=== PATIENT | female | born 1995 | race Caucasian/White ===

== ENCOUNTER 2021-10-01 05:17 | Emergency (ER) | payer MEDICAID, SELFPAY ==
--- NOTE | ~2021-10-01 | XR_ITS ---
EXAMINATION: XR CHEST CLINICAL INFORMATION: Cough and congestion COMPARISON: June 03, 2019 TECHNIQUE: 2 views of the chest were obtained. FINDINGS: No significant abnormality is noted involving the heart, lungs, mediastinum, bony thorax or soft tissues. XR/XR chest 2V IMPRESSION: No acute disease.
[2021-10-01 05:30] VITALS: BP 109/80; PULSE 103; RESP 18; TEMP 36.9; O2SAT 98; BMI 27.1
[2021-10-01 06:03] LABS: Appearance Urine TURBID; Color Urine YELLOW; Glucose Urine UA NEG (NEG); Leukocyte Esterase Urine TRACE (NEG); Nitrite Urine POS (NEG); PH 6.5 (5.0-8.0); Specific Gravity - Urine 1.025 (1.005-1.025); UACC Culture Trigger YES; Urine Blood TRACE (NEG); Urine Ketones NEG (NEG); Urine Protein NEG (NEG-TRACE)
[2021-10-01 06:05] LABS: UPreg QC Valid YES; Urine Pregnancy NEGATIVE (NEGATIVE)
[2021-10-01 06:15] LABS: Amorphous Sediment Urine TRACE /LPF; Bacteria Urine 3+ /LPF; Mucus Urine 1+ /LPF; RBC Urine 0-2 /HPF (0); Squamous Epithelial Cell Urine 2+ /LPF
--- NOTE | 2021-10-01 06:49 | ED.GENADULT ---
HPI - General Adult General Chief complaint: General Medical Stated complaint: symptoms, coughing up blood Time Seen by Provider: 10/01/21 05:36 Source: patient Mode of arrival: ambulatory Limitations: no limitations History of Present Illness HPI narrative: 26 yo female presented c/o cough,congestion nausea,stated cougheg up blood Yesterday Onset (ago): day(s) (1) Radiation: non-radiation Severity: moderate Quality: aching Pain Consistency: intermittent Relieving factors: none Exacerbating factors: none Associated symptoms: denies other symptoms Related Data Previous Rx's Medication Instructions Recorded cephalexin 500 mg capsule 500 mg PO Q8H #21 cap 10/01/21 Allergies Allergy/AdvReac Type Severity Reaction Status Date / Time No Known Allergies Allergy Unverified 07/15/20 16:19 [No Known Allergies*] Review of Systems Constitutional: Constitutional: Reports no additional constitutional complaints Cardiovascular: Cardiovascular: Reports no additional cardiovascular complaints Respiratory: Respiratory: Reports cough Gastrointestinal: Gastrointestinal: Denies diarrhea, Reports nausea and Denies vomiting Musculoskeletal: Musculoskeletal: Reports no additional musculoskeletal complaints PMFSH Social History Social History Advance Directives: No Advance Directives Information Provided: Yes Physical Exam Vital Signs: Vital Signs: Last Vital Signs Temp 98.4 F 10/01/21 05:30 Pulse 103 H 10/01/21 05:30 Resp 18 10/01/21 05:30 BP 109/80 10/01/21 05:30 Pulse Ox 98 10/01/21 05:30 BMI result Body Mass Index 27.1 Const: General: cooperative, healthy appearing and comfortable Orientation/consciousness: oriented to person HENMT: Head: Yes normal to inspection Face and sinus: Yes normal facial exam Mouth: Normal oral and palatal mucosa present Neck: Neck: Yes normal visual inspection and Yes full ROM Chest: Chest palpation & inspection: normal inspection of the chest Resp: Effort & Inspection: normal respiratory effort Auscultation: clear to auscultation bilaterally Cardio: Jugular venous distension: no JVD Rate: regular rate GI: Inspection: Yes normal to inspection Skin: General skin exam: no rashes or lesions noted Lesions: no lesions Rashes: no rashes Neuro: General: oriented to person Medical Decision Making Lab Data Labs: Lab Results 10/01/21 10/01/21 10/01/21 Range/Units 05:58 05:58 06:37 Urine Color YELLOW Urine Appearance TURBID Urine pH 6.5 (5.0-8.0) Ur Specific [place] 1.025 (1.005-1.025) Urine Protein NEG (NEG-TRACE) MG/DL Urine Glucose (UA) NEG (NEG) MG/DL Urine Ketones NEG (NEG) MG/DL Urine Blood TRACE (NEG) Urine Nitrite POS H (NEG) Ur Leukocyte Esterase TRACE H (NEG) Urine RBC 0-2 (0) /HPF Urine WBC 5-9 H (0-4) /HPF Ur Squamous Epith Cells 2+ /LPF Amorphous Sediment TRACE /LPF Urine Bacteria 3+ /LPF Urine Mucus 1+ /LPF Urine Test NEGATIVE (NEGATIVE) COVID-19 (MANDI) Negative (Negative) COVID-19 Clin Com See Note Imaging Data Chest x-ray: My impression: to my review NAD Discharge Plan Discharge Clinical Impression: UTI (urinary tract infection), URI (upper respiratory infection) Patient Disposition: Home, Self-Care Instructions: Urinary Tract Infection in Women (ED), Upper Respiratory Infection (ED) Prescriptions: New cephalexin 500 mg capsule 500 mg PO Q8H Qty: 21 RF: 0 Interventions: ED Discharge Assessment Last Done: 10/01/21 07:25 Discharge Date/Time: 10/01/21 07:26
[2021-10-01 06:57] LABS: COVID-19 Test Negative (Negative)
== END 2021-10-01 07:26 | disposition home or self-care (01) ==
PROVIDERS: Emergency Medicine; Emergency Provider Emergency Medicine
DX: N39.0 Urinary tract infection, site not specified (principal); J06.9 Acute upper respiratory infection, unspecified; Z20.822 Contact with and (suspected) exposure to COVID-19
CPT/HCPCS: 36415; 71046; 81001; 81025; 87086; 87088; 87186; 87635; 99283

== ENCOUNTER 2021-11-21 16:05 | Emergency (ER) | payer MEDICAID, SELFPAY ==
[2021-11-21 16:14] VITALS: BP 108/73; PULSE 97; RESP 18; TEMP 37.2; O2SAT 99; BMI 29.4
[2021-11-21 16:38] LABS: MANUAL DIFF FLAG NO
[2021-11-21 16:43] LABS: Basophils Percent Auto 0.1 % (0-2); Eosinophils Absolute Auto 0.2 X10*3/uL (0.0-0.4); Hematocrit 41.6 % (37.0-47.0); Hemoglobin 13.4 g/dl (12.0-16.0); Imm Gran Abs Auto 0.02 X10*3/uL (0.00-0.03); Imm Gran Pct Auto 0.2 % (0.0-0.4); Lymphocytes Absolute Auto 2.1 X10*3/uL (1.2-4.9); Lymphocytes Percent Auto 22.4 % (20-40); Mean Corpuscular HGB Conc 32.2 g/dl (31.0-35.0); Mean Corpuscular Hemoglobin 28.2 pg (27.0-33.0); Mean Corpuscular Volume 87.4 fL (80.0-98.0); Mean Platelet Volume 8.8 fL (9.4-12.3); Monocytes Absolute Auto 0.6 X10*3/uL (0.1-1.2); Monocytes Percent Auto 6.9 % (2-11); Neutrophils Absolute Auto 6.3 x10*3/uL (2.0-8.3); Neutrophils Percent Auto 68.4 % (45-73); Platelet Count 306 X10*3/uL (160-400); Red Blood Count 4.76 X10*6/uL (4.20-5.50); Red Cell Distribution Width 12.8 % (11.0-16.0); White Blood Count 9.2 X10*3/uL (4.8-10.8)
[2021-11-21 16:54] LABS: Appearance Urine HAZY; Color Urine YELLOW; Glucose Urine UA NEG (NEG); Leukocyte Esterase Urine TRACE (NEG); Nitrite Urine POS (NEG); PH 7.5 (5.0-8.0); Specific Gravity - Urine 1.015 (1.005-1.025); UACC Culture Trigger YES; Urine Blood 3+ (NEG); Urine Ketones NEG (NEG); Urine Protein NEG (NEG-TRACE)
[2021-11-21 16:55] LABS: UPreg QC Valid YES; Urine Pregnancy NEGATIVE (NEGATIVE)
[2021-11-21 16:56] LABS: Anion Gap 9 (12-20); Blood Urea Nitrogen 10 mg/dL (9-16); Calcium 9.9 mg/dL (8.4-10.2); Carbon Dioxide 28 mmol/L (22-29); Chloride 107 mmol/L (96-108); Creatinine Clr Calc Pharmacy 77.8; Estimated Glomerular Filt Rate > 60; Glucose Random 71 mg/dL (60-115); Potassium 3.6 mmol/L (3.3-5.1); Sodium 140 mmol/L (135-145)
[2021-11-21 16:59] LABS: HCG Quantitative < 2 mIU/mL
[2021-11-21 17:57] LABS: Bacteria Urine 4+ /LPF; Squamous Epithelial Cell Urine 4+ /LPF; UACC CULT YES
== END 2021-11-21 18:19 | disposition left against medical advice (07) ==
PROVIDERS: Emergency Provider Emergency Medicine
DX: R68.84 Jaw pain (principal)
CPT/HCPCS: 36415; 80048; 81001; 81025; 84702; 85025; 87086; 87088; 87186; 99283

== ENCOUNTER 2022-02-04 19:56 | Emergency (ER) | payer MEDICAID, SELFPAY ==
[2022-02-04 20:03] VITALS: BP 126/71; PULSE 86; RESP 18; TEMP 36.3; O2SAT 100; BMI 31.3
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
--- NOTE | 2022-02-04 20:18 | ECG_ITS ---
Test Reason : OVERDOSE Blood Pressure : / mmHG Vent. Rate : 068 BPM Atrial Rate : 068 BPM P-R Int : 178 ms QRS Dur : 082 ms QT Int : 378 ms P-R-T Axes : 045 030 012 degrees QTc Int : 401 ms Normal sinus rhythm with sinus arrhythmia Cannot rule out Anterior infarct , age undetermined Abnormal ECG When compared with ECG of 03-JUN-2019 16:26, No significant change was found Referred By: Lito Martinez Electronically Signed By:SAMIR FLORENTINO MD
[2022-02-04 20:37] LABS: MANUAL DIFF FLAG NO
[2022-02-04 20:39] LABS: Basophils Percent Auto 0.2 % (0-2); Eosinophils Absolute Auto 0.1 X10*3/uL (0.0-0.4); Eosinophils Percent Auto 1.4 % (0-4); Hematocrit 39.2 % (37.0-47.0); Hemoglobin 12.9 g/dl (12.0-16.0); Imm Gran Abs Auto 0.03 X10*3/uL (0.00-0.03); Imm Gran Pct Auto 0.3 % (0.0-0.4); Lymphocytes Absolute Auto 1.9 X10*3/uL (1.2-4.9); Lymphocytes Percent Auto 18.7 % (20-40); Mean Corpuscular HGB Conc 32.9 g/dl (31.0-35.0); Mean Corpuscular Hemoglobin 28.7 pg (27.0-33.0); Mean Corpuscular Volume 87.1 fL (80.0-98.0); Mean Platelet Volume 9.3 fL (9.4-12.3); Monocytes Absolute Auto 0.6 X10*3/uL (0.1-1.2); Monocytes Percent Auto 5.6 % (2-11); Neutrophils Absolute Auto 7.6 x10*3/uL (2.0-8.3); Neutrophils Percent Auto 73.8 % (45-73); Platelet Count 242 X10*3/uL (160-400); Red Cell Distribution Width 12.3 % (11.0-16.0); White Blood Count 10.3 X10*3/uL (4.8-10.8)
[2022-02-04 20:49] LABS: Ethanol < 10 mg/dL
[2022-02-04 20:52] LABS: Alanine Aminotransferase 13 U/L (0-31); Albumin Level 4.2 g/dL (3.5-5.0); Alkaline Phosphatase 66 U/L (39-117); Anion Gap 13 (12-20); Aspartate Amino Transferase 16 U/L (5-31); Bilirubin Total 0.4 mg/dL (0.0-1.0); Blood Urea Nitrogen 12 mg/dL (9-16); Calcium 8.5 mg/dL (8.4-10.2); Carbon Dioxide 21 mmol/L (22-29); Chloride 107 mmol/L (96-108); Creatinine Clr Calc Pharmacy 101.3; Estimated Glomerular Filt Rate > 60; Glucose Random 111 mg/dL (60-115); Magnesium 1.6 mg/dL (1.6-2.6); Potassium 3.7 mmol/L (3.3-5.1); Sodium 137 mmol/L (135-145); Total Protein 6.7 g/dL (6.5-8.0)
[2022-02-04 20:58] LABS: HCG Quantitative < 2 mIU/mL
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
--- NOTE | 2022-02-04 21:15 | PC.NURSE ---
Addendum entered by Cosme Donaldson RN 02/04/22 22:02: Pt attempting to elope Per Dr. Mcnamara, this nruse to speak to poison control and find out recommendations. Per poison control, requesting salicylate and tylenol level. Dr. Mcnamara made aware. Original Note: 2114
== END 2022-02-04 22:05 | disposition home or self-care (01) ==
PROVIDERS: Emergency Provider Internal Medicine
DX: R53.83 Other fatigue (principal); T42.6X1A Poisoning by other antiepileptic and sedative-hypnotic drugs, accidental (unintentional), initial encounter; T40.2X1A Poisoning by other opioids, accidental (unintentional), initial encounter; Y92.039 Unspecified place in apartment as the place of occurrence of the external cause; G89.29 Other chronic pain; M54.9 Dorsalgia, unspecified
CPT/HCPCS: 36415; 80053; 82077; 83735; 84702; 85025; 93005; 96360; 99283; 99284

== ENCOUNTER 2022-03-02 20:48 | Emergency (ER) | payer MEDICAID, SELFPAY ==
--- NOTE | 2022-03-02 21:45 | PC.NURSE ---
pt has been going in and out of the waiting room. pt has returned and states she has burning in her chest due to out of her inhaler. no s/s of resp distress noted. steady gait skin pink warm and dry.
[2022-03-02 21:53] VITALS: BP 105/62; PULSE 93; RESP 14; TEMP 36.9; O2SAT 98; BMI 27.1
[2022-03-02 22:27] LABS: Strep A Nucleic Acid Negative (Negative)
[2022-03-02 22:34] LABS: COVID-19 Test Negative (Negative); IDNOW Serial# 16C4AD1C
--- NOTE | 2022-03-02 23:23 | ED_ITS ---
HPI - SOB/Dyspnea General Chief Complaint: Dyspnea Stated Complaint: asthma, glands swollen, foot swelling Time Seen by Provider: 03/02/22 23:12 Source: patient Mode of arrival: ambulatory Limitations: no limitations History of Present Illness HPI Narrative: 26-year-old female who presents emergency department for evaluation of shortness of breath, right neck swelling/pain and right foot pain and swelling. The p atient states that she has been feeling short of breath for approximately 1 week. She states that the shortness of breath is intermittent. She denies dyspnea on exertion. She denied fever, chills, cough. She states that her boyfriend was also feeling short of breath so she decided to come to the emergency department with him to be evaluated. The patient also states that she has developed swelling and pain on the right side of her neck for the past 2 days. She also states she has a burning sensation when she swallows. The patient also complains of swelling and pain of her right foot. She states that she is having pain in her right 2nd toe and she states that she has had these symptoms on off since she was 13 years old. Related Data Previous Rx's Medication Instructions Recorded cephalexin 500 mg capsule 500 mg PO Q8H #21 cap 10/01/21 Allergies Allergy/AdvReac Type Severity Reaction Status Date / Time No Known Allergies Allergy Verified 11/21/21 16:14 [No Known Allergies*] Review of Systems Review of Systems: Yes all other systems are reviewed and are negative [facility] Past Medical History [facility] Narrative: Past medical history: None. Past surgical history: None. Social history: She smokes 1/2 pack of cigarettes per day x3 years. She states she drinks alcohol occasionally. She denies drug use. Social History Social History Advance Directives: No Advance Directives Information Provided: No Patient : No Physical Exam Vital Signs: Vital Signs: Last Vital Signs Temp 98.4 F 03/02/22 21:53 Pulse 93 03/02/22 21:53 Resp 14 03/02/22 21:53 BP 105/62 03/02/22 21:53 Pulse Ox 98 03/02/22 21:53 BMI result Body Mass Index 27.1 Const: Other: Awake, alert, female patient, she is agitated and is upset that she had to wait in the emergency department for evaluation. HEENT: Head: Yes normal to inspection, Yes normocephalic and Yes atraumatic Ears: external ears normal General nose exam: Normal external nose present Face and sinus: Yes normal facial exam Mouth: Normal oral and palatal mucosa present Throat: Yes posterior oropharynx normal Eyes: General: appearance normal, both eyes and all related structures Periorbital: periorbital findings normal Eyelids: Yes eyelids normal Conjunctivae: conjunctivae normal Sclerae: sclerae normal Corneas: corneas normal Pupils: Equal, round and reactive pupils present Direct Ophthalmos copy: normal light reflex Neck: Other: The patient does have tenderness palpation of her right neck along the anterior cervical chain, there is no adenopathy that I can palpate, she also has tenderness palpation of her right trapezius muscle. Lymphatic: no lymphadenopathy noted Chest: Chest palpation & inspection: normal inspection of the chest and normal palpation of entire chest wall Resp: Effort & Inspection: normal respiratory effort, abnormal respiratory pattern, no audible wheezes and no respiratory distress Auscultation: clear to auscultation bilaterally, no crackles, no rales, no rhonchi and no wheezes Cardio: Rate: regular rate Rhythm: regular rhythm Heart sounds: S1 normal heart sound present, S2 normal heart sound present and Murmur heart sound present GI: Inspection: No distended Palpation (GI): Soft to palpation, nontender, no guarding and No hepatosplenomegaly present Auscultation: normal bowel sounds : General: Yes no CVA tenderness Back/Spine/Pelvis: Back: no CVA tenderness Skin: General skin exam: no rashes or lesions noted Lesions: no lesions Rashes: no rashes Wounds: no wounds Neuro: Cranial nerves: Yes CN's II-XII intact bilaterally and Yes Equal, round and reactive pupils present Cognition (Neuro): normal cognition Motor exam (neuro): 5/5 motor strength present throughout Extrem: Other: The patient's feet appear to be symmetric do not see any significant soft tissue swelling, there is no increased warmth, there is no tenderness to palpation, there is no increased warmth or erythema noted. Psych: Appearance: grossly normal Mental Status: mental status grossly normal Speech and movement: Clear speech present Affect: normal affect Attitude: cooperative Thought process: Normal thought process present Thought content: Normal thought content present Course Course Course Narrative: 26-year-old female who presents emergency department for evaluation of shortness of breath, right-sided neck pain and right foot pain. Patient's vital signs were normal. Physical examination did reveal right-sided neck tenderness with no adenopathy. Patient's lower extremity examination was unremarkable. Patient's COVID-19 test was negative. Patient's rapid strep test was negative. Patient's presentation is consistent with a viral syndrome and I did discuss this with her. She was given printed and verbal instructions discharged home. MDM - SOB/Dyspnea Lab Data Labs: Lab Results 03/02/22 03/02/22 Range/Units 22:14 22:14 COVID-19 (MANDI) Negative (Negative) COVID-19 Clin Com See Note S. pyogenes GrpA ANISA Negative (Negative) Discharge Plan Discharge Clinical Impression: Viral syndrome, Acute pain of right foot Patient Disposition: Home, Self-Care Instructions: Viral Syndrome (ED) Additional Instructions: Your COVID-19 test was negative. Your symptoms are consistent with a viral infection. Take ibuprofen 200 mg pills, 3 pills every 6 hours as needed for pain. Take Tylenol (acetaminophen) 500 mg pills, 2 pills every 4 to 6 hours as needed for pain. Follow-up with your doctor in 2 days. Please return to the emergency department if your symptoms get worse or if you develop any symptoms that are concerning to you. Prescriptions: No Action cephalexin 500 mg capsule 500 mg PO Q8H Qty: 21 0RF
== END 2022-03-02 23:51 | disposition home or self-care (01) ==
PROVIDERS: Emergency Provider Emergency Medicine Emergency Medical Services
DX: B34.9 Viral infection, unspecified (principal); R06.02 Shortness of breath; M54.2 Cervicalgia; R13.10 Dysphagia, unspecified; M79.671 Pain in right foot; F17.210 Nicotine dependence, cigarettes, uncomplicated; Z20.822 Contact with and (suspected) exposure to COVID-19; Z79.899 Other long term (current) drug therapy; Z71.6 Tobacco abuse counseling
CPT/HCPCS: 87635; 87651; 99283

== ENCOUNTER 2022-07-05 00:57 | Emergency (ER) | payer MEDICAID, SELFPAY ==
[2022-07-05 01:32] VITALS: BP 102/58; PULSE 92; RESP 20; TEMP 36.7; O2SAT 95; BMI 30.4
== END 2022-07-05 06:16 | disposition left against medical advice (07) ==
PROVIDERS: Emergency Provider Emergency Medicine
DX: O99.519 Diseases of the respiratory system complicating pregnancy, unspecified trimester (principal); J45.909 Unspecified asthma, uncomplicated; Z3A.00 Weeks of gestation of pregnancy not specified
CPT/HCPCS: 99281

== ENCOUNTER → 2022-07-13 11:08 | Outpatient (BNVA) | payer MEDICAID, SELFPAY | PROVIDERS: Visit Provider Advanced Practice Midwife | DX: O34.219 Maternal care for unspecified type scar from previous cesarean delivery (principal); Z3A.00 Weeks of gestation of pregnancy not specified | CPT/HCPCS: 99202 ==

== ENCOUNTER 2022-07-24 14:43 | Outpatient (REF) | payer MEDICAID, SELFPAY ==
--- NOTE | ~2022-07-24 | US_ITS ---
EXAMINATION: US OB LIMITED CLINICAL INFORMATION: Check size and dates. LMP 04/09/2022 which would suggest gestational age of 15 weeks 1 day and estimated date of delivery of 01/14/2022. COMPARISON: None TECHNIQUE: Transabdominal first trimester OB ultrasound. FINDINGS: There is a single viable intrauterine fetus. heart rate measures 153 bpm. There is a posterior placenta with grade 0 changes. Measurements: BPD measures 3.2 cm suggesting 16 weeks 1 day. OFD measures 4.3 cm suggesting gestational age of 16 weeks 3 days. Head circumference measures 12.5 cm suggesting gestational age of 16 weeks 3 days. Abdominal circumference measures 10.4 cm suggesting gestational age of 16 weeks 3 days. Femur length measures 2 cm suggesting gestational age of 16 weeks 0 days. From today's measurements, the gestational age is estimated at 16 weeks 2 days with estimated date of delivery of 01/06/2022. The ovaries are normal. There is no fluid seen in the maternal pelvis. US/US OB limited IMPRESSION: Single viable intrauterine fetus. From today's measurements, gestational age is estimated at 16 weeks 2 days with estimated date of delivery 01/06/2022.
== END 2022-07-24 14:44 | disposition home or self-care (01) ==
LOC: HO.US 14:43
PROVIDERS: Visit Provider Advanced Practice Midwife
DX: Z34.92 Encounter for supervision of normal pregnancy, unspecified, second trimester (principal); Z3A.15 15 weeks gestation of pregnancy
CPT/HCPCS: 76815

== ENCOUNTER 2022-08-02 17:59 | Emergency (ER) | payer MEDICAID, SELFPAY ==
--- NOTE | ~2022-08-02 | US_ITS ---
EXAMINATION: ULTRASOUND OB LIMITED CLINICAL INFORMATION: 4 months , abdominal pain, no movement COMPARISON: 07/24/2022 TECHNIQUE: Sonographic evaluation of the pelvis in the setting of . FINDINGS: Single live intrauterine identified. Fetus is in breech presentation. Posterior grade 1-2 placenta noted. heart beat is identified with a rate of 150 bpm. Amniotic fluid index measures 9.0 cm. Cervix measures 3.7 cm in length. measurements with corresponding to gestational age as follows: Biparietal diameter 3.7 cm (17 weeks 3 days) Occipital frontal diameter 4.8 cm (17 weeks 4 days) Head circumference 14.2 cm (17 weeks 4 days) Abdominal circumference 12.8 cm (18 weeks 3 days) Femur length 2.5 cm (17 weeks 4 days) Estimated gestational age from today's measurements is 17 weeks 6 days (estimated date delivery 01/05/2023). Estimated weight is 0 lbs. 8 oz. US/US OB limited IMPRESSION: Single live intrauterine as detailed above. Gestational age based on today's measurements is 17 weeks 6 days corresponding to estimated date of delivery of 01/05/2023.
--- NOTE | ~2022-08-02 | US_ITS ---
EXAMINATION: US ABDOMEN LIMITED CLINICAL INFORMATION: Right upper quadrant pain. COMPARISON: CT 12/12/2018 TECHNIQUE: Real-time imaging of the right upper quadrant abdominal viscera. FINDINGS: PANCREAS: Not well assessed due to overlying bowel gas. LIVER: The liver is normal in size. The liver contour is normal. Parenchymal echogenicity is normal. No focal hepatic lesion. There is no intrahepatic biliary duct dilatation seen. GALLBLADDER: The gallbladder is physiologically distended without evidence of stones, sludge, polyps, wall thickening or pericholecystic fluid. Negative sonographic Del Valle sign. COMMON BILE DUCT: Normal in caliber measuring 0.2 cm in diameter. RIGHT KIDNEY: No hydronephrosis. No renal calculi or focal parenchymal lesions. The kidney measures 10.3 cm in maximum dimension. FREE FLUID: None. US/US abdomen limited IMPRESSION: No abnormality demonstrated.
[2022-08-02 18:49] VITALS: BP 113/42; PULSE 79; RESP 18; TEMP 36.8; O2SAT 100; BMI 22.1
[2022-08-02 19:32] LABS: Hematocrit 32.7 % (37.0-47.0); Hemoglobin 10.9 g/dl (12.0-16.0); Mean Corpuscular HGB Conc 33.3 g/dl (31.0-35.0); Mean Corpuscular Hemoglobin 28.5 pg (27.0-33.0); Mean Corpuscular Volume 85.4 fL (80.0-98.0); Platelet Count 200 X10*3/uL (160-400); Red Blood Count 3.83 X10*6/uL (4.20-5.50); Red Cell Distribution Width 13.3 % (11.0-16.0); White Blood Count 7.1 X10*3/uL (4.8-10.8)
[2022-08-02 19:50] LABS: Alanine Aminotransferase 19 U/L (0-31); Albumin Level 3.9 g/dL (3.5-5.0); Alkaline Phosphatase 57 U/L (39-117); Anion Gap 14 (12-20); Aspartate Amino Transferase 23 U/L (5-31); Bilirubin Direct < 0.2 mg/dL (0.0-0.5); Bilirubin Total 0.2 mg/dL (0.0-1.0); Blood Urea Nitrogen 8 mg/dL (9-16); Calcium 8.5 mg/dL (8.4-10.2); Carbon Dioxide 20 mmol/L (22-29); Chloride 108 mmol/L (96-108); Creatinine Clr Calc Pharmacy 145.9; Estimated Glomerular Filt Rate > 60; Glucose Random 78 mg/dL (60-115); Lipase 22 U/L (8-78); Potassium 4.1 mmol/L (3.3-5.1); Sodium 138 mmol/L (135-145); Total Protein 6.6 g/dL (6.5-8.0)
[2022-08-02 23:48] VITALS: BP 90/47; PULSE 84; RESP 17; TEMP 36.7; O2SAT 99
[2022-08-02 23:53] VITALS: BP 102/57; PULSE 75; RESP 14; TEMP 36.7; O2SAT 98
[2022-08-03] MEDS: 0.9 % Sodium Chloride 1,000 ML 999 ML IV (00:08)
--- NOTE | 2022-08-03 00:33 | ED_ITS ---
HPI - Abdominal Pain General Chief Complaint: Abdominal Pain Stated Complaint: 4 months , pain in stomach Time Seen by Provider: 08/02/22 23:38 Source: patient Mode of arrival: ambulatory Limitations: no limitations History of Present Illness HPI narrative: This is a 27-year-old female M1 past medical history of anemia an asthma presenting to the emergency department with diffuse abdominal pain, decreased movement x2 days. Patient describes the pain as severe, throughout her entire abdomen, described as stabbing pain that is preventing her from sleeping. She tells me she typically feels the baby moving throughout the day however over the past 2 days she has not felt any movement. Patient has had an ultrasound confirming intrauterine however, not receiving regular care. Currently taking vitamins. She tells me her last few pregnancies were uncomplicated. Able to eat and drink without difficulty although sometimes states it makes pain worse. She denies any nausea, vomiting, headache, dizziness, vision changes, changes in bowel habits, difficulties with urination, vaginal bleeding, vaginal discharge. Reports she is about 4 months MD elicited complaint: abdominal pain Related Data Home Medications Medication Instructions Recorded Confirmed [id number] 3-fat com #1 27 cap PO 07/13/22 mg-1 mg-300 mg capsule Previous Rx's Medication Instructions Recorded vitamin with calcium 1 tab PO DAILY #90 tabs 07/13/22 no.72-iron 27 mg-folic acid 1 mg tablet ( Vitamins Plus Low Iron) Allergies Allergy/AdvReac Type Severity Reaction Status Date / Time No Known Allergies Allergy Verified 07/13/22 11:11 [No Known Allergies*] Review of Systems Review of Systems Constitutional : No Weight loss, No Fever, No Chills, No Fatigue, No Malaise ENT/Mouth : No sore throat, No Rhinorrhea Eyes: No Eye Pain, No Swelling, No Redness Cardiovascular : No Chest Pain, No SOB, No Dyspnea on Exertion, No Orthopnea, No Edema, No Palpitations Respiratory : No Cough, No Sputum, No Wheezing Gastrointestinal : No Nausea, No Vomiting, No Diarrhea, No Constipation, + abdominal Pain, No Hematochezia, No Melena Genitourinary : No Dysuria, No Urinary Frequency, No Hematuria, Musculoskeletal : No joint pain, No Myalgias, No Joint Swelling Skin : No Skin Lesions, No rash Neuro : No Weakness, No Numbness, No Dizziness, No Headache Psych : No Anxiety/Panic, No Depression Heme/Lymph: No Bruising, No Bleeding,No Lymphadenopathy All other systems reviewed and are negative Yes all other systems are reviewed and are negative [facility] Past Medical History Attestation statement: The following information was validated with the patient. Source: old records reviewed and nursing notes reviewed Medical History (Updated 08/03/22 @ 01:31 by ERIC Leo) Anemia Asthma Surgical History (Updated 07/13/22 @ 12:02 by Luiza Gray CNM) Hx of section Family History Family History (Updated 07/13/22 @ 11:14 by DEEPAK [place]) Paternal Grandmother Lung cancer Maternal Aunt Breast cancer Social History Social History Patient Tobacco Use Status: Current everyday Tobacco user Use of substances other than those prescribed or required for medical reasons: No Advance Directives: No Patient : Yes Physical Exam ED Vital Signs: Vital Signs - 24 hr 08/02/22 18:49 08/02/22 23:53 08/02/22 23:48 Temperature 98.2 F 98.1 F 98.1 F Pulse Rate 79 75 84 Respiratory Rate 18 14 17 Blood Pressure 113/42 L 102/57 L 90/47 L Pulse Oximetry 100 98 99 Oxygen Delivery Method Room Air Room Air Room Air 08/03/22 01:00 Temperature Pulse Rate 72 Respiratory Rate 19 Blood Pressure 116/69 Pulse Oximetry 94 Oxygen Delivery Method Room Air BMI result Body Mass Index 22.1 vss Appearance: Alert.? Oriented X3.? No acute distress.? Head: Normocephalic, atraumatic, no step-offs or deformities Eyes: Pupils equal, round and reactive to light.? ENT: Pharynx normal.? Neck: Normal inspection.? Neck supple.? CVS: Normal heart rate and rhythm.? Pulses normal.? Respiratory: No respiratory distress.? Breath sounds normal.? Abdomen: Soft and diffusely tender abdomen with normoactive bowel sounds. heart tone 155 via auscultation.? Skin: Skin warm and dry.? Normal skin color.? Normal skin turgor.? Extremities: No lower extremity edema.? No calf ttp. 5/5 strength to bilateral upper and lower extremities Back: No midline tenderness, no C-spine tenderness, full range of motion, no CVA tenderness bilaterally Neuro: Oriented X 3.? No motor deficit.? No sensory deficit. CN 2-12 intact Course Reevaluation(s) Reevaluation #1: CBC with slight normocytic anemia likely secondary to , chemistry with no acute findings, lipase within normal limits, beta hCG 21,402. Urine pending. Time: 01:34 Reevaluation #2: Sign-out given to pending US and reval. Disposition pending results. Time: 01:34 MDM - Abdominal Pain MDM Narrative Medical decision making narrative: 0020 19-year-old female presents with diffuse abdominal pain, currently around 4 months , M1 not having care. Physical examination with a diffusely tender abdomen, heart by auscultation of 155. Regular rate and rhythm, lungs clear. Neuro nonfocal. Patient's vital signs are stable, pressure slightly on the soft side. Will rule out subchorionic hemorrhage, demise. Unlikely appendicitis, cholecystitis, no signs of acute abdomen. Denies chest pain, shortness of breath, unlikely ACS or PE. Plan at this time is to obtain basic labs, urine, ultrasound. Medical Records Attestation: I reviewed the patient's medical records. Lab Data Attestation: I reviewed the patient's lab results. Result diagrams: 08/02/22 19:24 08/02/22 19:24 Labs: Lab Results 08/02/22 08/02/22 08/03/22 Range/Units 19:24 19:24 00:34 WBC 7.1 (4.8-10.8) X10*3/uL RBC 3.83 L (4.20-5.50) X10*6/uL Hgb 10.9 L (12.0-16.0) g/dl Hct 32.7 L (37.0-47.0) % MCV 85.4 (80.0-98.0) fL MCH 28.5 (27.0-33.0) pg MCHC 33.3 (31.0-35.0) g/dl RDW 13.3 (11.0-16.0) % Plt Count 200 (160-400) X10*3/uL MPV 9.0 L (9.4-12.3) fL Absolute Nucleated RBC 0.000 (0.0-0.012) X10*3/uL Nucleated RBC % (auto) 0.0 (0.0-0.2) /100WBC Sodium 138 (135-145) mmol/L Potassium 4.1 (3.3-5.1) mmol/L Chloride 108 (96-108) mmol/L Carbon Dioxide 20 L (22-29) mmol/L Anion Gap 14 (12-20) BUN 8 L (9-16) mg/dL Creatinine 0.60 (0.5-1.4) mg/dL Estim Creat Clear Calc 145.9 Estimated GFR > 60 Random Glucose 78 (60-115) mg/dL Calcium 8.5 (8.4-10.2) mg/dL Total Bilirubin 0.2 (0.0-1.0) mg/dL Direct Bilirubin < 0.2 (0.0-0.5) mg/dL AST 23 D (5-31) U/L ALT 19 (0-31) U/L Alkaline Phosphatase 57 (39-117) U/L Total Protein 6.6 (6.5-8.0) g/dL Albumin 3.9 (3.5-5.0) g/dL Lipase 22 (8-78) U/L Beta HCG, Quant 78956 mIU/mL Urine Color Yellow Urine Appearance Cloudy Urine pH 6.5 (5.0-9.0) Ur Specific [place] 1.025 (1.005-1.025) Urine Protein Trace (Neg-Trace) mg/dL Urine Glucose (UA) Negative (Negative) mg/dL Urine Ketones 15 (Negative) mg/dL Urine Blood Moderate (2+) H (Negative) Urine Nitrite Positive H (Negative) Ur Leukocyte Esterase Small (1+) H (Negative) Urine RBC >20 H (0-2) /HPF Urine WBC 6-10 H (0-5) /HPF Ur Squamous Epith Cells 6-10 (0-2) /HPF Urine Bacteria 4+ (None Seen) Hyaline Casts 0-2 (0-2) /LPF Critical Care Time Critical Care Time Critical Care Time: No Discharge Plan Discharge Clinical Impression: Abdominal pain during Patient Disposition: Home, Self-Care Instructions: Abdominal Pain (ED) Additional Instructions: Take your medications as prescribed. If you were prescribed antibiotics today, it is important that you take your medication to their entirety, do not skip any doses, do not finish them early. Follow-up with your primary care provider this week. Follow-up with OBGYN call tomorrow. Continue taking prental vitamin Return to the emergency department with new or worsening symptoms. Such as fevers, chills, chest pain, shortness of breath, nausea, vomiting, dizziness, headache, vision changes, lethargy, worsening abdominal pain, vaginal bleeding, vaginal discharge, weakness In case of emergency call 911 Prescriptions: No Action [id number] 3-fat com #1 27-1-300 mg capsule PO Vitamin Plus Low Iron 27 mg iron- 1 mg tablet 1 tab PO DAILY Qty: 90 5RF Referrals: [facility] [Primary Care Provider] - 2 days Joo Hays MD [Physician] - 2 days Stand Alone Forms: Work/School Release
[2022-08-03 00:45] LABS: Appearance Urine Cloudy; Color Urine Yellow; Glucose Urine UA Negative (Negative); Leukocyte Esterase Urine Small (1+) (Negative); Nitrite Urine Positive (Negative); PH 6.5 (5.0-9.0); Specific Gravity - Urine 1.025 (1.005-1.025); UMIC TRIGGER UACC YES; Urine Blood Moderate (2+) (Negative); Urine Ketones 15 mg/dL (Negative); Urine Protein Trace mg/dL (Neg-Trace)
[2022-08-03 00:47] LABS: Bacteria Urine 4+ (None Seen); Hyaline Casts Urine 0-2 /LPF (0-2); RBC Urine >20 /HPF (0-2); UACC Culture Trigger YES
[2022-08-03 01:00] VITALS: BP 116/69; PULSE 72; RESP 19; O2SAT 94
--- NOTE | 2022-08-03 01:52 | PC.NURSE ---
Pt at u/s. Vital signs to be re-checked upon return.
[2022-08-03 02:03] VITALS: BP 119/70; PULSE 69; RESP 15; O2SAT 96
--- NOTE | 2022-08-03 02:11 | PC.NURSE ---
Pt returned from u/s. Aox4. No apparent distress. Reports pain, 06/07. Requested food and liquids. Warm blanket provided. Provider notified.
[2022-08-03] MEDS: Nitrofurantoin Monohyd/M-Cryst 100 MG CAPSULE PO (03:22)
[2022-08-03 03:25] VITALS: BP 101/65; PULSE 74; RESP 16; O2SAT 98
--- NOTE | 2022-08-03 03:29 | PC.NURSE ---
Pt aox4. Breaths are even and unlabored. No apparent distress. Reports pain, 8/10. Antibiotic provided. Discharge instructions provided. Pt verbalizes understanding.
== END 2022-08-03 03:31 | disposition home or self-care (01) ==
PROVIDERS: Emergency Provider Emergency Medicine
DX: O26.892 Other specified pregnancy related conditions, second trimester (principal); R10.9 Unspecified abdominal pain; Z3A.17 17 weeks gestation of pregnancy
CPT/HCPCS: 36415; 76705; 76815; 80048; 80076; 81001; 83690; 84702; 85027; 87086; 87088; 87186; 96360; 96361; 99284; 99285

== ENCOUNTER 2022-09-13 08:51 | Emergency (ER) | payer MEDICAID, SELFPAY ==
[2022-09-13 08:57] VITALS: BP 99/57; PULSE 84; RESP 18; TEMP 36.7; O2SAT 98; BMI 31.3
--- NOTE | 2022-09-13 09:02 | ED_ITS ---
HPI - General Adult General Chief complaint: Dental/Oral Stated complaint: tooth pain L side, face swollen Time Seen by Provider: 09/13/22 09:01 Source: patient Mode of arrival: ambulatory Limitations: no limitations History of Present Illness HPI narrative: Patient is a 27 year old assigned female at with a history of presenting to the emergency department today with left sided dental pain. Patient states that her left upper wisdom tooth is coming in and giving her pain. Patient denies any dizziness, lightheadedness, abdominal pain, nausea, vomiting, fever, chills, blurry vision, double vision, loss of vision, chest pain, difficulty breathing, shortness of breath, back pain, night sweats, pain with urination, increased urinary frequency, increased urinary urgency, blood in her urine or stool, syncope or a near syncopal episode, recent trauma or falls, bowel incontinence, bladder incontinence, bowel retention, bladder retention, or any other complaints at this time. Onset (ago): month(s) Location: mouth Radiation: non-radiation Severity: mild Severity scale (1-10): 3 Quality: dull Pain Consistency: constant Relieving factors: none Exacerbating factors: none Associated symptoms: denies other symptoms Treatments prior to arrival: none Related Data Home Medications Medication Instructions Recorded Confirmed [id number] 3-fat com #1 27 cap PO 07/13/22 mg-1 mg-300 mg capsule Previous Rx's Medication Instructions Recorded vitamin with calcium 1 tab PO DAILY #90 tabs 07/13/22 no.72-iron 27 mg-folic acid 1 mg tablet ( Vitamins Plus Low Iron) nitrofurantoin 100 mg PO Q12H 7 days #14 caps 08/03/22 monohydrate/macrocrystals 100 mg capsule (Macrobid) Allergies Allergy/AdvReac Type Severity Reaction Status Date / Time No Known Allergies Allergy Verified 07/13/22 11:11 [No Known Allergies*] Review of Systems Constitutional: Constitutional: Reports no additional constitutional complaints, Denies chills, Denies fever(s) and Denies night sweats Eyes: Eyes: Reports no additional eye complaints, Denies blurry vision, Denies change in vision, Denies diplopia, Denies eye discharge, Denies loss of vision and Denies eye pain ENT: Denies dizziness and Reports mouth pain Cardiovascular: Cardiovascular: Reports no additional cardiovascular complaints, Denies chest pain, Denies lightheadedness, Denies Loss of Consciousness and Denies dyspnea Respiratory: Respiratory: Reports no additional respiratory complaints and Denies dyspnea Gastrointestinal: Gastrointestinal: Reports no additional gastrointestinal complaints, Denies abdominal pain, Denies melena, Denies hematochezia, Denies change in bowel habits and Denies change in stool character Genitourinary: Genitourinary: Denies hematuria, Denies urinary frequency, Denies dysuria, Denies urinary incontinence, Denies urinary hesitancy and Denies urinary urgency Musculoskeletal: Musculoskeletal: Reports no additional musculoskeletal complaints, Denies numbness and Denies tingling Neurologic: Denies dizziness, Denies loss of vision, Denies numbness and Denies tingling Psychiatric: Psychiatric: Reports no additional psychiatric complaints Endocrine: Endocrine: Reports no additional endocrine complaints Hematologic/Lymphatic: Hematologic/Lymphatic: Reports no additional hematologic/lymphatic complaints Allergic/Immunologic: Allergic/Immunologic: Reports no additional allergic/immunologic complaints PMFSH Past Medical History Attestation statement: The following information was validated with the patient. Source: old records reviewed Medical History Anemia Asthma Surgical History Hx of section Family History Family History Paternal Grandmother Lung cancer Maternal Aunt Breast cancer Social History Social History Patient Tobacco Use Status: Current everyday Tobacco user Advance Directives: No Advance Directives Information Provided: No Physical Exam ED Vital Signs: Vital Signs - 24 hr 09/13/22 08:57 Temperature 98.0 F Pulse Rate 84 Respiratory Rate 18 Blood Pressure 99/57 L Pulse Oximetry 98 Oxygen Delivery Method Room Air BMI result Body Mass Index 31.3 Const General: cooperative, no acute distress, alert and awake Nutritional Appearance: well nourished Orientation/consciousness: patient oriented x3 Limitations: no limitations HENMT Head: Yes normal to inspection and Yes atraumatic Ears: hearing grossly normal bilaterally and external ears normal General nose exam: Normal external nose present, no nasal discharge noted and no epistaxis Face and sinus: Yes normal facial exam, No abrasion and No laceration Mouth: Normal oral and palatal mucosa present, no drooling and no muffled voice Eyes General: appearance normal, both eyes and all related structures Periorbital: periorbital findings normal Eyelids: Yes eyelids normal Conjunctivae: conjunctivae normal Pupils: Equal, round and reactive pupils present EOM: EOMs intact bilaterally Neck Neck: Yes normal visual inspection, Yes full ROM and Yes no lymphadenopathy Chest Chest palpation & inspection: normal inspection of the chest Resp Effort & Inspection: normal respiratory effort and able to speak in complete sentences Auscultation: clear to auscultation bilaterally Cardio Rate: regular rate Rhythm: regular rhythm GI Inspection: Yes normal to inspection Neuro General: patient oriented x3 and moves all extremities Cranial nerves: Yes Equal, round and reactive pupils present Cognition (Neuro): normal cognition Motor exam (neuro): 5/5 motor strength present throughout Sensory Exam: Normal double simultaneous stimulation for sensation Coordination: [id number] test normal Extrem General: Yes normal to inspection, Yes full ROM and Yes capillary refill normal Psych Appearance: grossly normal Mental Status: mental status grossly normal Affect: normal affect Attitude: cooperative Thought process: Normal thought process present Thought content: Normal thought content present Insight: Good insight present (Psych) Medications Administered Discontinued Medications Generic Name Dose Route Start Last Admin Trade Name Freq PRN Reason Stop Dose Admin Hydrocodone Bitart/Acetaminophen 1 tab 09/13/22 09:40 09/13/22 09:47 Hydrocodone Bit/Acetam 5/325 Tablet PO 09/13/22 09:41 1 tab ONCE ONE Administration Medical Decision Making MDM Narrative Medical decision making narrative: Patient is a 27 year old assigned female at with a history of current presenting to the emergency department today with left sided dental pain. Patient's physical exam was unremarkable. I explained my physical exam findings to the patient. I answered all questions asked by the patient. Patient received PO [place] which she stated helped her symptoms significantly. I stressed the importance of the patient taking her medication as prescribed. I stressed the importance of the patient following up with her primary care provider and a dentist. I stressed the importance of the patient returning to the emergency department immediately if her symptoms were to worsen or if she were to develop any dizziness, shortness of breath, difficulty breathing, chest pain, blurry vision, loss of vision, nausea, vomiting, abdominal pain, fever, chills, back pain, or any other complaints. Patient verbalized agreement and understanding with this treatment plan and discharge. Medical Records Medical records reviewed: Yes I reviewed the patient's medical records. Discharge Plan Discharge Clinical Impression: Toothache Patient Disposition: Home, Self-Care Instructions: Toothache (ED) Additional Instructions: Follow up with your primary care provider and a dentist. Return to the emergency department immediately if your symptoms worsen or if you develop any dizziness, shortness of breath, difficulty breathing, chest pain, blurry vision, loss of vision, nausea, vomiting, abdominal pain, fever, chills, back pain, or any other complaints. Call or visit any of the clinics below to establish with a dentist: [facility] [address] [place] [address] [facility] [address] [facility], [address] [address] [facility] [address] [place] [id number] [facility] [address] [place] [address] [place] [address] [place] [address] Prescriptions: No Action nitrofurantoin monohyd/m-cryst [Macrobid] 100 mg capsule 100 mg PO Q12H 7 Days Qty: 14 0RF Rx Instructions: must administer with a meal/food [id number] 3-fat com #1 27-1-300 mg capsule PO Vitamin Plus Low Iron 27 mg iron- 1 mg tablet 1 tab PO DAILY Qty: 90 5RF Referrals: [facility] [place] [facility] [place]] (Call to establish and follow up with a primary care provider. If you already have a primary care provider, please follow up with them. ) [facility] [place] [facility] [facility]] (Call to establish and follow up with a primary care provider. If you already have a primary care provider, please follow up with them. ) [facility] [place] [facility] [place] [facility]] (Call to establish and follow up with a primary care provider. If you already have a primary care provider, please follow up with them. ) Stand Alone Forms: Work/School Release Interventions: ED Discharge Assessment Last Done: 09/13/22 10:03 Discharge Date/Time: 09/13/22 10:06 Print Language: Kinyarwanda
[2022-09-13] MEDS: HYDROcodone Bit/Acetam 5/325 TABLET 1 TAB PO (09:47)
== END 2022-09-13 10:06 | disposition home or self-care (01) ==
PROVIDERS: Emergency Provider Emergency Medicine Emergency Medical Services
DX: K08.89 Other specified disorders of teeth and supporting structures (principal)
CPT/HCPCS: 99283

== ENCOUNTER 2023-01-02 20:26 | Emergency (ER) | payer MEDICAID, SELFPAY ==
--- NOTE | ~2023-01-02 | CT_ITS ---
EXAMINATION: CT ABDOMEN AND PELVIS WITHOUT CONTRAST CLINICAL INFORMATION: Lower abdominal pain status post 12/29/2022 COMPARISON: CT abdomen pelvis 12/12/2018 TECHNIQUE: Multidetector volumetric imaging was performed from the superior aspect of the liver through the pubic symphysis. Sagittal and coronal reformatted images were obtained on the technologist's workstation. This CT examination was performed using dose optimization techniques as appropriate, variously including the following: *Automated exposure control *Adjustment of mA and/or kV according to patient size (this includes techniques or standardized protocols for targeted exams where dose is matched to indication/reason for exam; i.e. extremities or head) *Use of iterative reconstruction technique DLP: 516 mGy-cm FINDINGS: LUNG BASES: The visualized lung bases are unremarkable. LIVER, GALLBLADDER, AND BILIARY TREE: The liver is normal in size, shape, and attenuation. No focal hepatic lesion or biliary ductal dilatation is present. The gallbladder is unremarkable with no evidence of radiopaque gallstones, gallbladder wall thickening, or obvious pericholecystic inflammatory changes. PANCREAS: Unremarkable. SPLEEN: Unremarkable. ADRENAL GLANDS: Unremarkable. KIDNEYS AND URETERS: The kidneys are normal in size, shape, and attenuation. No hydronephrosis, hydroureter, or calculi seen. No perinephric stranding. BLADDER: Distended but unremarkable. GASTROINTESTINAL TRACT: A large stool burden is present throughout the colon. The small and large bowel are otherwise unremarkable. The appendix is not seen but there is no evidence of appendicitis appendicitis. ABDOMINAL WALL: Suture material is present in the midline. Air is present in the abdominal wall presumably secondary to recent surgery. LYMPH NODES: No retroperitoneal lymphadenopathy. VASCULAR: Embolization coils are in the presacral region in the left retroperitoneum along with a large rounded metallic foreign body measuring about 2.0 x 1.4 x 1.8 cm. PELVIC VISCERA: Enlarged uterus is seen consistent with recent . A small area of hematoma could be present in the space of Retzius. (3:65). OSSEOUS STRUCTURES: Unremarkable. CT/CT abdomen pelvis wo IV con IMPRESSION: A cause for the patient's lower abdominal pain has not been found. Incidental note made of: 1. Large stool burden throughout the colon. 2. Enlarged uterus consistent with recent . 3. Embolization coils in the left retroperitoneum with a large rounded metallic foreign body. 4. Air in the abdominal wall presumably secondary to recent surgery. 5. Tiny bit of possible blood in the space of Retzius also presumably related to recent surgery. Fleischner guidelines were followed.
[2023-01-02 20:30] VITALS: BP 133/88; PULSE 105; RESP 18; TEMP 36.7; O2SAT 100; BMI 34.4
--- NOTE | 2023-01-02 20:30 | ED_ITS ---
HPI - General Adult General Chief complaint: Abdominal Pain <Kacie Hamlin CNP - Last Filed: 01/02/23 20:40> Stated complaint: Constipation/Post C section <Kacie Hamlin CNP - Last Filed: 01/02/23 20:40> Time Seen by Provider: 01/02/23 21:53 <Kacie Hamlin CNP - Last Filed: 01/02/23 20:40> Source: patient <Lito Mratinez MD - Last Filed: 01/03/23 05:49> Mode of arrival: ambulatory <Lito Martinez MD - Last Filed: 01/03/23 05:49> Limitations: no limitations <Lito Martinez MD - Last Filed: 01/03/23 05:49> History of Present Illness HPI narrative: Patient 4 days post since and unable to move her bowels feels constipated no history of constipation in the past tried Dulcolax without much relief no nausea no vomiting no abdominal distension <Lito Martinez MD - Last Filed: 01/03/23 05:49> Related Data Home medications: Home Medications Medication Instructions Recorded Confirmed NKR-lcnb-MU-omega 3-fat com #1 27 cap PO 07/13/22 mg-1 mg-300 mg capsule Previous Rx's Medication Instructions Recorded vitamin with calcium 1 tab PO DAILY #90 tabs 07/13/22 no.72-iron 27 mg-folic acid 1 mg tablet ( Vitamins Plus Low Iron) nitrofurantoin 100 mg PO Q12H 7 days #14 caps 08/03/22 monohydrate/macrocrystals 100 mg capsule (Macrobid) polyethylene glycol 3350 17 17 g PO DAILY #119 grams 01/02/23 gram/dose oral powder (Miralax) <Kacie Hamlin CNP - Last Filed: 01/02/23 20:40> Allergies/adverse reactions: Allergies Allergy/AdvReac Type Severity Reaction Status Date / Time No Known Allergies Allergy Verified 07/13/22 11:11 [No Known Allergies*] <Kacie Hamlin CNP - Last Filed: 01/02/23 20:40> Review of Systems Review of Systems: Yes all other systems are reviewed and are negative <Lito Martinez MD - Last Filed: 01/03/23 05:49> [facility] Past Medical History Medical History: Medical History Anemia Asthma <Kacie Hamlin CNP - Last Filed: 01/02/23 20:40> Surgical History: Surgical History Hx of section <Kacie Hamlin CNP - Last Filed: 01/02/23 20:40> Family History Family History: Family History Paternal Grandmother Lung cancer Maternal Aunt Breast cancer <Kacie Hamlin CNP - Last Filed: 01/02/23 20:40> Social History Social History: Social History Patient Tobacco Use Status: Current everyday Tobacco user Use of substances other than those prescribed or required for medical reasons: No Advance Directives: No Advance Directives Information Provided: No <Kacie Hamlin CNP - Last Filed: 01/02/23 20:40> Physical Exam ED Vital Signs: Vital Signs - 24 hr 01/02/23 20:30 01/02/23 23:47 Temperature 98.1 F Pulse Rate 105 H 100 Respiratory Rate 18 16 Blood Pressure 133/88 123/65 Pulse Oximetry 100 98 Oxygen Delivery Method Room Air Room Air BMI result Body Mass Index 34.4 <Kacie Hamlin CNP - Last Filed: 01/02/23 20:40> Vital Signs - 24 hr 01/02/23 20:30 01/02/23 23:47 Temperature 98.1 F Pulse Rate 105 H 100 Respiratory Rate 18 16 Blood Pressure 133/88 123/65 Pulse Oximetry 100 98 Oxygen Delivery Method Room Air Room Air BMI result Body Mass Index 34.4 <Lito Martinez MD - Last Filed: 01/03/23 05:49> Appearance: Alert. Oriented X3. No acute distress. ENT: Pharynx normal. Oral Mucosa moist Neck: Normal inspection. Neck supple. CVS: Normal heart rate and rhythm. Pulses normal. Respiratory: No respiratory distress. Equal air entry bilateral, no wheezing/rales/rhonchi Abdomen: Soft and nontender. Bowel sounds are present, no mass palpable, no CVA tenderness rectum: Soft stool in rectum Skin: Skin warm and dry. Normal skin color. Normal skin turgor. Extremities: No lower extremity edema. No calf tenderness Neuro: Oriented X 3. No motor deficit. <Lito Martinez MD - Last Filed: 01/03/23 05:49> Course Course Course Narrative: This is an RME: Additional HPI, ROS, PE not included below will be deferred to primary provider. Patient is a 27-year-old female who presents to the emergency department for evaluation of constipation. She is s/p scheduled Caesarean delivery 12/29/[address] [facility], discharged from hospital today. She has been experiencing constipation, last BM prior to surgery 12/27/2022. Has trialed dulcolax without relief. She is complaining of pain to mid lower ABD, incisional burning, diffuse lower back pain. Denies any injury, fevers, chills, nausea, vomiting. States she did not have this pain while at the hospital. Plan: labs, urinalysis, CT ABD/pelvis <Kacie Hamlin CNP - Last Filed: 01/02/23 20:40> Medications Administered Discontinued Medications Generic Name Dose Route Start Last Admin Trade Name Freq PRN Reason Stop Dose Admin Bisacodyl 10 mg 01/02/23 22:41 01/02/23 22:54 Bisacodyl 5 Mg Tablet. PO 01/02/23 22:42 Not Given ONCE ONE Magnesium Hydroxide 30 ml 01/02/23 22:41 01/02/23 22:54 Milk Of Magnesia 30 Ml Oral.German PO 01/02/23 22:42 30 ml ONCE ONE Administration <Kacie Hamlin CNP - Last Filed: 01/02/23 20:40> Medications Administered Discontinued Medications Generic Name Dose Route Start Last Admin Trade Name Freq PRN Reason Stop Dose Admin Bisacodyl 10 mg 01/02/23 22:41 01/02/23 22:54 Bisacodyl 5 Mg Tablet. PO 01/02/23 22:42 Not Given ONCE ONE Magnesium Hydroxide 30 ml 01/02/23 22:41 01/02/23 22:54 Milk Of Magnesia 30 Ml Oral.Susp PO 01/02/23 22:42 30 ml ONCE ONE Administration <Lito Martinez MD - Last Filed: 01/03/23 05:49> Medical Decision Making Medical Decision Making MDM Narrative: Manual disimpaction was done patient try to move her bowels but did not move her bowel was given milk a magnesia advised to take MiraLax daily <Lito Martinez MD - Last Filed: 01/03/23 05:49> Lab Data Result Diagrams: 01/02/23 20:46 01/02/23 20:46 <Kacie Hamlin CNP - Last Filed: 01/02/23 20:40> Labs: Lab Results 01/02/23 01/02/23 Range/Units 20:46 20:46 WBC 7.9 (4.8-10.8) X10*3/uL RBC 3.59 L (4.20-5.50) X10*6/uL Hgb 10.5 L (12.0-16.0) g/dl Hct 31.9 L (37.0-47.0) % MCV 88.9 (80.0-98.0) fL MCH 29.2 (27.0-33.0) pg MCHC 32.9 (31.0-35.0) g/dl RDW 13.1 (11.0-16.0) % Plt Count 249 (160-400) X10*3/uL MPV 9.3 L (9.4-12.3) fL Immature Gran % (Auto) 0.3 (0.0-0.4) % Neut % (Auto) 61.5 (45-73) % Lymph % (Auto) 28.6 (20-40) % [place] % (Auto) 6.2 (2-11) % Eos % (Auto) 3.3 (0-4) % Baso % (Auto) 0.1 (0-2) % Lymph # (Auto) 2.3 (1.2-4.9) X10*3/uL [place] # (Auto) 0.5 (0.1-1.2) X10*3/uL Eos # (Auto) 0.3 (0.0-0.4) X10*3/uL Baso # (Auto) 0.0 (0.0-0.2) X10*3/uL Abs Immat Gran (auto) 0.02 (0.00-0.03) X10*3/uL Absolute Neuts (auto) 4.9 (2.0-8.3) x10*3/uL Absolute Nucleated RBC 0.000 (0.0-0.012) X10*3/uL Nucleated RBC % (auto) 0.0 (0.0-0.2) /100WBC Sodium 139 (135-145) mmol/L Potassium 4.4 (3.3-5.1) mmol/L Chloride 107 (96-108) mmol/L Carbon Dioxide 24 (22-29) mmol/L Anion Gap 12 (12-20) BUN 13 (9-16) mg/dL Creatinine 0.66 (0.5-1.4) mg/dL Estim Creat Clear Calc 104.1 Estimated GFR > 60 Random Glucose 80 (60-115) mg/dL Calcium 9.2 D (8.4-10.2) mg/dL Total Bilirubin 0.3 (0.0-1.0) mg/dL AST 63 H (5-31) U/L ALT 56 H (0-31) U/L Alkaline Phosphatase 130 H (39-117) U/L Total Protein 6.5 (6.5-8.0) g/dL Albumin 3.8 (3.5-5.0) g/dL <Kacie Hamlin, VOLUNTEER FIRE FIGHTER - Last Filed: 01/02/23 20:40> Lab Results 01/02/23 01/02/23 Range/Units 20:46 20:46 WBC 7.9 (4.8-10.8) X10*3/uL RBC 3.59 L (4.20-5.50) X10*6/uL Hgb 10.5 L (12.0-16.0) g/dl Hct 31.9 L (37.0-47.0) % MCV 88.9 (80.0-98.0) fL MCH 29.2 (27.0-33.0) pg MCHC 32.9 (31.0-35.0) g/dl RDW 13.1 (11.0-16.0) % Plt Count 249 (160-400) X10*3/uL MPV 9.3 L (9.4-12.3) fL Immature Gran % (Auto) 0.3 (0.0-0.4) % Neut % (Auto) 61.5 (45-73) % Lymph % (Auto) 28.6 (20-40) % [place] % (Auto) 6.2 (2-11) % Eos % (Auto) 3.3 (0-4) % Baso % (Auto) 0.1 (0-2) % Lymph # (Auto) 2.3 (1.2-4.9) X10*3/uL [place] # (Auto) 0.5 (0.1-1.2) X10*3/uL Eos # (Auto) 0.3 (0.0-0.4) X10*3/uL Baso # (Auto) 0.0 (0.0-0.2) X10*3/uL Abs Immat Gran (auto) 0.02 (0.00-0.03) X10*3/uL Absolute Neuts (auto) 4.9 (2.0-8.3) x10*3/uL Absolute Nucleated RBC 0.000 (0.0-0.012) X10*3/uL Nucleated RBC % (auto) 0.0 (0.0-0.2) /100WBC Sodium 139 (135-145) mmol/L Potassium 4.4 (3.3-5.1) mmol/L Chloride 107 (96-108) mmol/L Carbon Dioxide 24 (22-29) mmol/L Anion Gap 12 (12-20) BUN 13 (9-16) mg/dL Creatinine 0.66 (0.5-1.4) mg/dL Estim Creat Clear Calc 104.1 Estimated GFR > 60 Random Glucose 80 (60-115) mg/dL Calcium 9.2 D (8.4-10.2) mg/dL Total Bilirubin 0.3 (0.0-1.0) mg/dL AST 63 H (5-31) U/L ALT 56 H (0-31) U/L Alkaline Phosphatase 130 H (39-117) U/L Total Protein 6.5 (6.5-8.0) g/dL Albumin 3.8 (3.5-5.0) g/dL <Lito Martinez MD - Last Filed: 01/03/23 05:49> Discharge Plan Discharge Clinical Impression: Constipation <Kacie Hamlin CNP - Last Filed: 01/02/23 20:40> Patient Disposition: Home, Self-Care <Kacie Hamlin CNP - Last Filed: 01/02/23 20:40> Instructions: Constipation (ED) <Kacie Hamlin CNP - Last Filed: 01/02/23 20:40> Additional Instructions: Take stool softener as prescribed <Kacie Hamlin CNP - Last Filed: 01/02/23 20:40> Prescriptions: New polyethylene glycol 3350 [Miralax] 17 gram/dose powder 17 g PO DAILY Qty: 119 0RF No Action nitrofurantoin monohyd/m-cryst [Macrobid] 100 mg capsule 100 mg PO Q12H 7 Days Qty: 14 0RF Rx Instructions: must administer with a meal/food IWW-jbwk-MG-omega 3-fat com #1 27-1-300 mg capsule PO Vitamin Plus Low Iron 27 mg iron- 1 mg tablet 1 tab PO DAILY Qty: 90 5RF <Kacie Hamlin CNP - Last Filed: 01/02/23 20:40> Interventions: ED Discharge Assessment Last Done: 01/02/23 23:50 <Kacie Hamlin CNP - Last Filed: 01/02/23 20:40> Discharge Date/Time: 01/02/23 23:50 <Kacie Hamlin CNP - Last Filed: 01/02/23 20:40>
[2023-01-02 20:52] LABS: MANUAL DIFF FLAG NO
[2023-01-02 20:59] LABS: Basophils Percent Auto 0.1 % (0-2); Eosinophils Absolute Auto 0.3 X10*3/uL (0.0-0.4); Eosinophils Percent Auto 3.3 % (0-4); Hematocrit 31.9 % (37.0-47.0); Hemoglobin 10.5 g/dl (12.0-16.0); Imm Gran Abs Auto 0.02 X10*3/uL (0.00-0.03); Imm Gran Pct Auto 0.3 % (0.0-0.4); Lymphocytes Absolute Auto 2.3 X10*3/uL (1.2-4.9); Lymphocytes Percent Auto 28.6 % (20-40); Mean Corpuscular HGB Conc 32.9 g/dl (31.0-35.0); Mean Corpuscular Hemoglobin 29.2 pg (27.0-33.0); Mean Corpuscular Volume 88.9 fL (80.0-98.0); Mean Platelet Volume 9.3 fL (9.4-12.3); Monocytes Absolute Auto 0.5 X10*3/uL (0.1-1.2); Monocytes Percent Auto 6.2 % (2-11); Neutrophils Absolute Auto 4.9 x10*3/uL (2.0-8.3); Neutrophils Percent Auto 61.5 % (45-73); Platelet Count 249 X10*3/uL (160-400); Red Blood Count 3.59 X10*6/uL (4.20-5.50); Red Cell Distribution Width 13.1 % (11.0-16.0); White Blood Count 7.9 X10*3/uL (4.8-10.8)
[2023-01-02 21:14] LABS: Alanine Aminotransferase 56 U/L (0-31); Albumin Level 3.8 g/dL (3.5-5.0); Alkaline Phosphatase 130 U/L (39-117); Anion Gap 12 (12-20); Aspartate Amino Transferase 63 U/L (5-31); Bilirubin Total 0.3 mg/dL (0.0-1.0); Blood Urea Nitrogen 13 mg/dL (9-16); Calcium 9.2 mg/dL (8.4-10.2); Carbon Dioxide 24 mmol/L (22-29); Chloride 107 mmol/L (96-108); Creatinine Clr Calc Pharmacy 104.1; Estimated Glomerular Filt Rate > 60; Glucose Random 80 mg/dL (60-115); Potassium 4.4 mmol/L (3.3-5.1); Sodium 139 mmol/L (135-145); Total Protein 6.5 g/dL (6.5-8.0)
[2023-01-02] MEDS: Milk of Magnesia 30 ML ORAL.SUSP PO (22:54)
[2023-01-02 23:47] VITALS: BP 123/65; PULSE 100; RESP 16; O2SAT 98
--- NOTE | 2023-01-02 23:48 | PC.NURSE ---
Assumed care from ABE Jarrett at 11:00pm, pt a&o, denies any sob or chest pain, no n/v, unable to have bowel movement before discharge. Reviewed discharge instructions with pt. Pt verbalized understanding.
== END 2023-01-02 23:50 | disposition home or self-care (01) ==
PROVIDERS: Nurse Practitioner Family; Emergency Provider Internal Medicine
DX: K59.00 Constipation, unspecified (principal); Z79.899 Other long term (current) drug therapy
CPT/HCPCS: 36415; 74176; 80053; 85025; 99284

== ENCOUNTER 2023-10-04 15:08 | Emergency (ER) | payer MEDICAID, SELFPAY ==
--- OUTSIDE RECORDS SUMMARY | 2023-10-04 15:26 | XMS_ITS | Continuity of Care Document ---
Author Name Unknown [facility] Address [address] [place] [id number] Care Team Providers Care Breaker Unit Assembler Name Role Phone Taylor Trivedi NP Primary Care Physician [phone] Encounter [facility] Date(s): 09/05/22 - 10[facility]05/[facility] [address] [place] [id number]- Patient Care team information Personnel Name: Taylor Trivedi NP Address: Address: [address], [place] [address]
[2023-10-04 15:35] VITALS: BP 136/90; PULSE 99; BMI 31.3
--- NOTE | 2023-10-04 15:39 | PC.NURSE ---
PT arrived with PD/EMS, pt screaming at staff, acting erratically, swearing at staff. Pt refusing all care. Charge nurse in room, provider at bedside. Pt refusing all care, left AMA. PD/EMS/Secuirty and provider walked pt out of ED. Pt refusing all vitals.
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
== END 2023-10-04 15:44 | disposition left against medical advice (07) ==
PROVIDERS: Emergency Provider Internal Medicine
DX: T50.904A Poisoning by unspecified drugs, medicaments and biological substances, undetermined, initial encounter (principal); R40.4 Transient alteration of awareness; Y92.810 Car as the place of occurrence of the external cause; R45.6 Violent behavior
CPT/HCPCS: 99282

== ENCOUNTER 2024-02-25 13:29 | Emergency (ER) | payer MEDICAID, SELFPAY ==
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
--- NOTE | ~2024-02-25 | XR_ITS ---
EXAMINATION: XR SHOULDER, LEFT CLINICAL INFORMATION: Left shoulder pain COMPARISON: None available. TECHNIQUE: AP external rotation, Grashey, scapular Y, and axillary views of the left shoulder. FINDINGS: The bones and soft tissues are normal. No fracture. Glenohumeral and acromioclavicular alignment is anatomic with normal joint space. No abnormal soft tissue calcifications. XR/XR shoulder LT min 2V IMPRESSION: Normal left shoulder.
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
[2024-02-25 13:51] VITALS: BP 131/68; PULSE 84; RESP 16; TEMP 36.1; O2SAT 98; BMI 32.5
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
== END 2024-02-25 20:00 | disposition left against medical advice (07) ==
LOC: HO.ED 18:57
PROVIDERS: Emergency Provider Emergency Medicine; PCP Registered Nurse
DX: S49.92XA Unspecified injury of left shoulder and upper arm, initial encounter (principal); M54.2 Cervicalgia; R51.9 Headache, unspecified; M25.512 Pain in left shoulder; V43.52XA Car driver injured in collision with other type car in traffic accident, initial encounter; Y93.9 Activity, unspecified; Y92.410 Unspecified street and highway as the place of occurrence of the external cause; Y99.8 Other external cause status
CPT/HCPCS: 70450; 72125; 73030; 99281; 99284

== ENCOUNTER 2024-05-30 10:20 | Emergency (ER) | payer MEDICAID, SELFPAY ==
--- NOTE | ~2024-05-30 | US_ITS ---
EXAMINATION: US PELVIS CLINICAL INFORMATION: Lower abdominal and pelvic pain. Vaginal bleeding. LMP 03/29/2024. COMPARISON: CT abdomen/pelvis 01/02/2023 TECHNIQUE: Ultrasound of the pelvis is performed using both transabdominal and transvaginal transducers along with Doppler. Transvaginal imaging is performed due to inadequate visualization transabdominally. FINDINGS: Uterus: The uterus is anteverted. The uterus measures 8.1 x 2.8 x 4.2 cm. Uterine echotexture is heterogeneous. Endometrial stripe measures 4 mm in thickness. Trace fluid in the endometrial cavity. Adnexa: Both ovaries are visualized. There is normal color flow to the adnexa. There is no ovarian torsion. There is no pelvic ascites or fluid collection. Right ovary measures 7.3 x 4.6 x 5.7 cm. Right ovarian cyst measures 5.5 x 4.3 x 4.8 cm. No suspicious features. Nonspecific septations or mural nodules. Left ovary measures 2.4 x 1.4 x 1.1 cm. US/US pelvic and transvaginal IMPRESSION: Simple appearing right ovarian cyst measures 5.5 x 4.3 x 4.8 cm. Findings likely represent a probable benign cyst. Recommend follow-up ultrasonography in 3-6 months.
[2024-05-30 10:26] VITALS: BP 110/71; PULSE 73; RESP 16; TEMP 35.9; O2SAT 96; BMI 33.3
[2024-05-30 10:47] LABS: MANUAL DIFF FLAG NO
[2024-05-30 10:48] LABS: Basophils Percent Auto 0.3 % (0-2); Eosinophils Absolute Auto 0.3 X10*3/uL (0.0-0.4); Eosinophils Percent Auto 5.3 % (0-4); Hematocrit 39.1 % (37.0-47.0); Hemoglobin 12.7 g/dl (12.0-16.0); Imm Gran Abs Auto 0.01 X10*3/uL (0.00-0.03); Imm Gran Pct Auto 0.2 % (0.0-0.4); Lymphocytes Absolute Auto 2.2 X10*3/uL (1.2-4.9); Lymphocytes Percent Auto 34.3 % (20-40); Mean Corpuscular HGB Conc 32.5 g/dl (31.0-35.0); Mean Corpuscular Hemoglobin 28.6 pg (27.0-33.0); Mean Corpuscular Volume 88.1 fL (80.0-98.0); Mean Platelet Volume 9.1 fL (9.4-12.3); Monocytes Absolute Auto 0.5 X10*3/uL (0.1-1.2); Monocytes Percent Auto 8.3 % (2-11); Neutrophils Absolute Auto 3.3 x10*3/uL (2.0-8.3); Neutrophils Percent Auto 51.6 % (45-73); Platelet Count 231 X10*3/uL (160-400); Red Blood Count 4.44 X10*6/uL (4.20-5.50); Red Cell Distribution Width 12.4 % (11.0-16.0); White Blood Count 6.5 X10*3/uL (4.8-10.8)
[2024-05-30 10:50] LABS: Appearance Urine Clear; Color Urine Yellow; Glucose Urine UA Negative (Negative); Leukocyte Esterase Urine Negative (Negative); Nitrite Urine Negative (Negative); PH 6.5 (5.0-9.0); Specific Gravity - Urine 1.025 (1.005-1.025); UMIC TRIGGER UACC YES; Urine Blood Moderate (2+) (Negative); Urine Ketones Negative (Negative); Urine Protein Negative (Neg-Trace)
[2024-05-30 10:53] LABS: Bacteria Urine None Seen (None Seen); Hyaline Casts Urine 0-2 /LPF (0-2); RBC Urine >20 /HPF (0-2); WBC Urine 0-5 /HPF (0-5)
[2024-05-30 11:10] LABS: Alanine Aminotransferase 56 U/L (0-31); Albumin Level 4.2 g/dL (3.5-5.0); Alkaline Phosphatase 76 U/L (39-117); Anion Gap 9 (12-20); Aspartate Amino Transferase 33 U/L (5-31); Bilirubin Total 0.4 mg/dL (0.0-1.0); Blood Urea Nitrogen 14 mg/dL (9-16); Calcium 9.7 mg/dL (8.4-10.2); Carbon Dioxide 26 mmol/L (22-29); Chloride 111 mmol/L (96-108); Estimated Glomerular Filt Rate > 60; Glucose Random 88 mg/dL (60-115); Potassium 4.4 mmol/L (3.3-5.1); Sodium 142 mmol/L (135-145)
[2024-05-30 11:12] LABS: HCG Quantitative < 2 mIU/mL
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
[2024-05-30 12:00] VITALS: BP 107/72; PULSE 86; RESP 15; TEMP 36.8; O2SAT 100
--- NOTE | 2024-05-30 13:38 | MHC.EDTECH ---
This tech went to room to indroduce herself, pt checked for positioning, call kennedy within reach, vital signs checked- pt was in ultrasound earlier.
--- NOTE | 2024-05-30 13:39 | MHC.EDTECH ---
This tech went to check on pt, pt stated he feels way better , lips still swollen, pt resting quietly, call kennedy within reach.
[2024-05-30 14:00] VITALS: BP 105/78; PULSE 74; RESP 15; TEMP 36.9; O2SAT 99
[2024-05-30 15:06] VITALS: BP 105/78; PULSE 74; RESP 15; TEMP 36.9; O2SAT 99
== END 2024-05-30 15:07 | disposition home or self-care (01) ==
PROVIDERS: Emergency Provider Student in an Organized Health Care Education/Training Program; PCP Registered Nurse
DX: N83.201 Unspecified ovarian cyst, right side (principal); R10.2 Pelvic and perineal pain; N93.9 Abnormal uterine and vaginal bleeding, unspecified
CPT/HCPCS: 36415; 76830; 76856; 80053; 81001; 84702; 85025; 99284

== ENCOUNTER 2024-07-20 20:00 | Emergency (ER) | payer MEDICAID, SELFPAY ==
--- NOTE | ~2024-07-20 | XR_ITS ---
EXAMINATION: XR CHEST CLINICAL INFORMATION: Left-sided posterior rib pain COMPARISON: None available. TECHNIQUE: 2 views of the chest were obtained. FINDINGS: No significant abnormality is noted involving the heart, lungs, mediastinum, bony thorax or soft tissues. XR/XR chest 2V IMPRESSION: Unremarkable examination. Electronically signed by: Tyrone Chiu MD 07/20/2024 09:29 PM EDT RP
[2024-07-20 20:27] VITALS: BP 100/76; RESP 18; O2SAT 98; BMI 34.3
--- NOTE | 2024-07-20 20:29 | ED_ITS ---
HPI - General Adult General Chief complaint: Back Pain/Injury Stated complaint: back pain, sob Time Seen by Provider: 07/20/24 22:26 History of Present Illness HPI narrative: Patient left before complete of treatment in the ED. Related Data Home Medications ?Medication ?Instructions ?Recorded ?Confirmed [id number]-vgei-BB-omega 3-fat com #1 27 cap PO 07/13/22 mg-1 mg-300 mg capsule Previous Rx's ?Medication ?Instructions ?Recorded vitamin with calcium 1 tab PO DAILY #90 tabs 07/13/22 no.72-iron 27 mg-folic acid 1 mg tablet ( Vitamins Plus Low Iron) nitrofurantoin 100 mg PO Q12H 7 days #14 caps 08/03/22 monohydrate/macrocrystals 100 mg capsule (Macrobid) polyethylene glycol 3350 17 17 g PO DAILY #119 grams 01/02/23 gram/dose oral powder (Miralax) Allergies Allergy/AdvReac Type Severity Reaction Status Date / Time No Known Allergies Allergy Verified 07/20/24 20:28 [No Known Allergies*] [facility] Past Medical History Medical History Anemia Asthma Surgical History Hx of section Family History Family History Paternal Grandmother Lung cancer Maternal Aunt Breast cancer Social History Social History Patient Tobacco Use Status: Current everyday Tobacco user Advance Directives: No Advance Directives Information Provided: No Physical Exam ED Vital Signs: Vital Signs - 24 hr 07/20/24 20:27 Respiratory Rate 18 Blood Pressure 100/76 Pulse Oximetry 98 Oxygen Delivery Method Room Air BMI result Body Mass Index 34.3 Course Course Course Narrative: RME: Done by ERIC Huddleston. 29-year-old female to the ED for left upper posterior rib back pain has worse on inspiration for 1 week. Patient denies any trauma, leg swelling, calf pain, coughing up blood. Patient denies any urinary/bowel incontinence or lower extremity weakness or pain. Physical exam negative for spinous tenderness. Positive for left posterior rib upper back tenderness on palpation. Labs EKG chest x-ray ordered Medical Decision Making Lab Data 07/20/24 20:40 07/20/24 20:40 Labs: Lab Results 07/20/24 Range/Units 20:40 WBC 7.4 (4.8-10.8) X10*3/uL RBC 4.47 (4.20-5.50) X10*6/uL Hgb 12.9 (12.0-16.0) g/dl Hct 39.9 (37.0-47.0) % MCV 89.3 (80.0-98.0) fL MCH 28.9 (27.0-33.0) pg MCHC 32.3 (31.0-35.0) g/dl RDW 12.7 (11.0-16.0) % Plt Count 233 (160-400) X10*3/uL MPV 9.1 L (9.4-12.3) fL Immature Gran % (Auto) 0.3 (0.0-0.4) % Neut % (Auto) 54.0 (45-73) % Lymph % (Auto) 34.5 (20-40) % [place] % (Auto) 6.6 (2-11) % Eos % (Auto) 4.3 H (0-4) % Baso % (Auto) 0.3 (0-2) % Lymph # (Auto) 2.6 (1.2-4.9) X10*3/uL [place] # (Auto) 0.5 (0.1-1.2) X10*3/uL Eos # (Auto) 0.3 (0.0-0.4) X10*3/uL Baso # (Auto) 0.0 (0.0-0.2) X10*3/uL Abs Immat Gran (auto) 0.02 (0.00-0.03) X10*3/uL Absolute Neuts (auto) 4.0 (2.0-8.3) x10*3/uL Absolute Nucleated RBC 0.000 (0.0-0.012) X10*3/uL Nucleated RBC % (auto) 0.0 (0.0-0.2) /100WBC PT 10.0 L (10.9-12.4) SEC INR 0.9 (0.9-1.1) APTT 29.9 (26.0-36.8) SEC Sodium 138 (135-145) mmol/L Potassium 3.7 (3.3-5.1) mmol/L Chloride 107 (96-108) mmol/L Carbon Dioxide 22 (22-29) mmol/L Anion Gap 13 (12-20) BUN 12 (9-16) mg/dL Creatinine 0.74 (0.5-1.4) mg/dL Estim Creat Clear Calc 91.0 Estimated GFR > 60 Random Glucose 104 (60-115) mg/dL Calcium 9.2 (8.4-10.2) mg/dL Total Bilirubin 0.5 (0.0-1.0) mg/dL AST 18 (5-31) U/L ALT 21 (0-31) U/L Alkaline Phosphatase 70 (39-117) U/L Troponin I High Sens < 2.7 (<3.5-17.0) ng/L Total Protein 7.2 (6.5-8.0) g/dL Albumin 4.3 (3.5-5.0) g/dL Discharge Plan Discharge Clinical Impression: Back pain, Chest pain, atypical Patient Disposition: Left W/O Completing Treatment Prescriptions: No Action nitrofurantoin monohyd/m-cryst [Macrobid] 100 mg capsule 100 mg PO Q12H 7 Days Qty: 14 0RF Rx Instructions: must administer with a meal/food polyethylene glycol 3350 [Miralax] 17 gram/dose powder 17 g PO DAILY Qty: 119 0RF PQA-fgnf-WP-omega 3-fat com #1 27-1-300 mg capsule PO Vitamin Plus Low Iron 27 mg iron- 1 mg tablet 1 tab PO DAILY Qty: 90 5RF Discharge Date/Time: 07/20/24 22:36
[2024-07-20 20:45] LABS: MANUAL DIFF FLAG NO
[2024-07-20 20:49] LABS: Basophils Percent Auto 0.3 % (0-2); Eosinophils Absolute Auto 0.3 X10*3/uL (0.0-0.4); Eosinophils Percent Auto 4.3 % (0-4); Hematocrit 39.9 % (37.0-47.0); Hemoglobin 12.9 g/dl (12.0-16.0); Imm Gran Abs Auto 0.02 X10*3/uL (0.00-0.03); Imm Gran Pct Auto 0.3 % (0.0-0.4); Lymphocytes Absolute Auto 2.6 X10*3/uL (1.2-4.9); Lymphocytes Percent Auto 34.5 % (20-40); Mean Corpuscular HGB Conc 32.3 g/dl (31.0-35.0); Mean Corpuscular Hemoglobin 28.9 pg (27.0-33.0); Mean Corpuscular Volume 89.3 fL (80.0-98.0); Mean Platelet Volume 9.1 fL (9.4-12.3); Monocytes Absolute Auto 0.5 X10*3/uL (0.1-1.2); Monocytes Percent Auto 6.6 % (2-11); Platelet Count 233 X10*3/uL (160-400); Red Blood Count 4.47 X10*6/uL (4.20-5.50); Red Cell Distribution Width 12.7 % (11.0-16.0); White Blood Count 7.4 X10*3/uL (4.8-10.8)
[2024-07-20 20:56] LABS: INTERNATIONAL NORM RATIO 0.9 (0.9-1.1)
[2024-07-20 20:59] LABS: Partial Thromboplastin Time 29.9 SEC (26.0-36.8)
[2024-07-20 21:01] LABS: Alanine Aminotransferase 21 U/L (0-31); Albumin Level 4.3 g/dL (3.5-5.0); Alkaline Phosphatase 70 U/L (39-117); Anion Gap 13 (12-20); Aspartate Amino Transferase 18 U/L (5-31); Bilirubin Total 0.5 mg/dL (0.0-1.0); Blood Urea Nitrogen 12 mg/dL (9-16); Calcium 9.2 mg/dL (8.4-10.2); Carbon Dioxide 22 mmol/L (22-29); Chloride 107 mmol/L (96-108); Estimated Glomerular Filt Rate > 60; Glucose Random 104 mg/dL (60-115); Potassium 3.7 mmol/L (3.3-5.1); Sodium 138 mmol/L (135-145); Total Protein 7.2 g/dL (6.5-8.0)
[2024-07-20 21:07] LABS: Troponin-I High Sensitivity < 2.7 ng/L (<3.5-17.0)
--- NOTE | 2024-07-20 22:35 | PC.NURSE ---
this nurse was notified by ERIC tsang pt no longer in exam room - elopement from [facility] bed 2
== END 2024-07-20 22:36 | disposition left against medical advice (07) ==
PROVIDERS: Physician Assistant; Emergency Provider Emergency Medicine
DX: M54.50 Low back pain, unspecified (principal); R07.89 Other chest pain; R06.02 Shortness of breath; Z79.899 Other long term (current) drug therapy
CPT/HCPCS: 36415; 71046; 80053; 84484; 85025; 85610; 85730; 99281; 99283

== ENCOUNTER 2024-11-16 04:35 | Emergency (ER) | payer MEDICAID, SELFPAY ==
--- NOTE | ~2024-11-16 | XR_ITS ---
CLINICAL HISTORY: pain swelling 3 view right foot Comparison: CR - FOOT RIGHT COMPLETE [id number] - 02/19/18 19:12 EDT Findings: No acute fracture or malalignment. 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 Joint spaces are otherwise maintained. No significant soft tissue swelling. IMPRESSION: 1. 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 This document has been electronically signed by: Antonette Duong MD on 11/16/2024 05:28:21
[2024-11-16 04:49] VITALS: BP 110/70; PULSE 83; RESP 16; TEMP 36.8; O2SAT 98; BMI 33.3
--- NOTE | 2024-11-16 07:05 | ED.EXTPRO ---
HPI - Extremity Problem General Chief complaint: Extremity Problem Stated complaint: right foot swollen Time Seen by Provider: 11/16/24 06:23 Source: patient Mode of arrival: ambulatory Limitations: no limitations History of Present Illness ED Provider: Dr. Taina Cook HPI Narrative: Patient comes in the emergency room complaining of foot swelling and pain for 2 weeks. Patient denies any injuries. Related Data Home Medications ?Medication ?Instructions ?Recorded ?Confirmed VOG-nrrw-XQ-omega 3-fat com #1 27 cap PO 07/13/22 mg-1 mg-300 mg capsule Previous Rx's ?Medication ?Instructions ?Recorded vitamin with calcium 1 tab PO DAILY #90 tabs 07/13/22 no.72-iron 27 mg-folic acid 1 mg tablet ( Vitamins Plus Low Iron) nitrofurantoin 100 mg PO Q12H 7 days #14 caps 08/03/22 monohydrate/macrocrystals 100 mg capsule (Macrobid) polyethylene glycol 3350 17 17 g PO DAILY #119 grams 01/02/23 gram/dose oral powder (Miralax) acetaminophen 500 mg capsule 500 mg PO QID PRN fever or pain 11/16/24 #30 caps Allergies Allergy/AdvReac Type Severity Reaction Status Date / Time No Known Allergies Allergy Verified 11/16/24 04:50 [No Known Allergies*] Review of Systems Review of Systems: Constitutional : No Weight loss, No Fever, No Chills, No Night Sweats, No Fatigue, No Malaise ENT/Mouth : No Hearing loss, No Ear Pain, No Nasal Congestion, No Sinus Pain, No Hoarseness, No sore throat, No Rhinorrhea, No Swallowing Difficulty Eyes: No Eye Pain, No Swelling, No Redness, No Foreign Body, No Discharge, No Vision Changes Cardiovascular : No Chest Pain, No SOB, No Dyspnea on Exertion, No Orthopnea, No Edema, No Palpitations Respiratory : No Cough, No Sputum, No Wheezing, No Smoke Exposure, No Dyspnea Gastrointestinal : No Nausea, No Vomiting, No Diarrhea, No Constipation, No abdominal Pain, No Hematochezia, No Melena Genitourinary : no irregular bleeding, No Dysuria, No Urinary Frequency, No Hematuria, No Urinary Incontinence, No Urgency, No Flank Pain, No Urinary Flow Changes, No Hesitancy Musculoskeletal : Patient complaining of 2nd toe pain on the right foot No Myalgias, No Joint Swelling Skin : No Skin Lesions, No rash Neuro : No Weakness, No Numbness, No Paresthesias, No Loss of Consciousness, No Dizziness, No Headache Psych : No Anxiety/Panic, No Depression, No SI/HI/AH/VH, No Social Issues, Heme/Lymph: No Bruising, No Bleeding,No Lymphadenopathy Endocrine : No Polyuria, No Polydipsia, No Temperature Intolerance [facility] Past Medical History Medical History Anemia Asthma Surgical History Hx of section Family History Family History Paternal Grandmother Lung cancer Maternal Aunt Breast cancer Social History Social History Patient Tobacco Use Status: Current everyday Tobacco user Advance Directives: No Advance Directives Information Provided: No Do you have a plan to hurt others: No Plan Physical Exam Vital Signs: Vital Signs: Last Vital Signs Temp 98.3 F 11/16/24 04:49 Pulse 83 11/16/24 04:49 Resp 16 11/16/24 04:49 BP 110/70 11/16/24 04:49 Pulse Ox 98 11/16/24 04:49 O2 Del Method Room Air 11/16/24 04:49 BMI result Body Mass Index 33.3 Const: Other: Appearance: Alert. Oriented X3. No acute distress. Eyes: Pupils equal, round and reactive to light. ENT: Pharynx normal. Neck: Normal inspection. Neck supple. No lymph nodes noted. No crepitus CVS: Normal heart rate and rhythm. Pulses normal. Normal S1 and S2 Respiratory: No respiratory distress. Breath sounds normal. No Wheezing. No rales Abdomen: Soft and nontender. No rigidity. No distention. Skin: Skin warm and dry. Normal skin color. Normal skin turgor. Extremities: No lower extremity edema. No Lacerations. No Rash no erythema, no obvious deformity, no swelling Neuro: Oriented X 3. No motor deficit. No sensory deficit. Moving all extremities. No slurred speech. 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 Patient referred to Orthopedics. Differential Diagnosis Differential Diagnoses: The differential diagnosis associated with the presentation includes (Avascular necrosis of foot, contusion, fracture) Discharge Plan Discharge Clinical Impression: Avascular necrosis of bone Patient Disposition: Home, Self-Care Instructions: Metatarsalgia (DC) Additional Instructions: Please follow-up with your primary care physician tomorrow. If you have any worsening or new symptoms, please return to the emergency room or call 911 Prescriptions: New acetaminophen 500 mg capsule 500 mg PO QID PRN (Reason: fever or pain) Qty: 30 0RF No Action nitrofurantoin monohyd/m-cryst [Macrobid] 100 mg capsule 100 mg PO Q12H 7 Days Qty: 14 0RF Rx Instructions: must administer with a meal/food polyethylene glycol 3350 [Miralax] 17 gram/dose powder 17 g PO DAILY Qty: 119 0RF VBU-exhi-SG-omega 3-fat com #1 27-1-300 mg capsule PO Vitamin Plus Low Iron 27 mg iron- 1 mg tablet 1 tab PO DAILY Qty: 90 5RF Referrals: David Alvarado PA-C [Physician Aerial Tram Operator] - 11/18/24 7:13 am Print Language: Indonesian
[2024-11-16 07:45] VITALS: BP 110/70; PULSE 83; RESP 16; TEMP 36.8; O2SAT 98
== END 2024-11-16 07:46 | disposition home or self-care (01) ==
PROVIDERS: Emergency Provider Emergency Medicine; PCP Registered Nurse
DX: M87.874 Other osteonecrosis, right foot (principal); R60.0 Localized edema; F17.210 Nicotine dependence, cigarettes, uncomplicated
CPT/HCPCS: 73630; 99282; 99283

== ENCOUNTER 2024-12-23 19:11 | Emergency (ER) | payer MEDICAID, SELFPAY ==
[2024-12-23 19:16] VITALS: BP 126/93; PULSE 76; RESP 14; TEMP 36.1; O2SAT 98; BMI 33.3
--- NOTE | 2024-12-23 19:16 | ED.GENADULT ---
HPI - General Adult General Chief complaint: General Medical Stated complaint: rt side head/face/teeth pain Related Data Home Medications ?Medication ?Instructions ?Recorded ?Confirmed TIB-fsdl-YT-omega 3-fat com #1 27 cap PO 07/13/22 mg-1 mg-300 mg capsule Previous Rx's ?Medication ?Instructions ?Recorded vitamin with calcium 1 tab PO DAILY #90 tabs 07/13/22 no.72-iron 27 mg-folic acid 1 mg tablet ( Vitamins Plus Low Iron) nitrofurantoin 100 mg PO Q12H 7 days #14 caps 08/03/22 monohydrate/macrocrystals 100 mg capsule (Macrobid) polyethylene glycol 3350 17 17 g PO DAILY #119 grams 01/02/23 gram/dose oral powder (Miralax) acetaminophen 500 mg capsule 500 mg PO QID PRN fever or pain 11/16/24 #30 caps Allergies Allergy/AdvReac Type Severity Reaction Status Date / Time No Known Allergies Allergy Verified 12/23/24 19:18 [No Known Allergies*] PMFSH Past Medical History Medical History Anemia Asthma Surgical History Hx of section Family History Family History Paternal Grandmother Lung cancer Maternal Aunt Breast cancer Social History Social History Patient Tobacco Use Status: Current everyday Tobacco user Advance Directives: No Advance Directives Information Provided: No Do you have a plan to hurt others: No Plan Physical Exam ED Vital Signs: BMI result Body Mass Index 33.3 Course Course Course Narrative: This is a rapid medical exam performed by Omkar Jett NP: Additional HPI, ROS, PE not included below will be deferred to primary provider. Patient is a 29-year-old female presenting with complaint of right ear and right sided facial pain for the past 2 months. States symptoms began after extraction of several teeth 2 years ago but this is the most severe. TM and EAC normal on the right. Rates pain at 11/10, very painful to even light touch. Discharge Plan Discharge Clinical Impression: Facial pain Patient Disposition: Left W/O Completing Treatment Prescriptions: No Action nitrofurantoin monohyd/m-cryst [Macrobid] 100 mg capsule 100 mg PO Q12H 7 Days Qty: 14 0RF Rx Instructions: must administer with a meal/food polyethylene glycol 3350 [Miralax] 17 gram/dose powder 17 g PO DAILY Qty: 119 0RF acetaminophen 500 mg capsule 500 mg PO QID PRN (Reason: fever or pain) Qty: 30 0RF XNS-wfsx-RB-omega 3-fat com #1 27-1-300 mg capsule PO Vitamin Plus Low Iron 27 mg iron- 1 mg tablet 1 tab PO DAILY Qty: 90 5RF Discharge Date/Time: 12/23/24 23:46
--- NOTE | 2024-12-23 23:34 | PC.NURSE ---
no answer from waiting room at 23:33
== END 2024-12-23 23:46 | disposition left against medical advice (07) ==
LOC: HO.ED 23:40
PROVIDERS: Emergency Provider Emergency Medicine; PCP Registered Nurse
DX: R51.9 Headache, unspecified (principal); H92.01 Otalgia, right ear; F17.210 Nicotine dependence, cigarettes, uncomplicated
CPT/HCPCS: 99281; 99282

== ENCOUNTER 2025-04-30 16:18 | Outpatient (REF) | payer MEDICAID, SELFPAY ==
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
[2025-04-30 17:59] LABS: Appearance Urine Clear; Glucose Urine UA Negative (Negative); PH 6.0 (5.0-9.0); Specific Gravity - Urine 1.025 (1.005-1.025); UMIC TRIGGER UACC YES
[2025-04-30 21:59] LABS: CT PCR Urine NOT DETECTED (Not Detect.); NG PCR Urine NOT DETECTED (Not Detect.)
[2025-05-01 03:50] LABS: Syphilis Screen Nonreactive (Nonreactive)
[2025-05-01 04:07] LABS: HIV Num 1 0.05 S/CO (0.00-0.99); ~HepC Num1 0.07 S/CO (0.00-0.79); ~Hepatitis C Antibody Nonreactive (Nonreactive)
== END 2025-04-30 16:19 | disposition home or self-care (01) ==
LOC: HO.HHCL 16:18
PROVIDERS: PCP Registered Nurse; Visit Provider Family Medicine
DX: Z11.3 Encounter for screening for infections with a predominantly sexual mode of transmission (principal); Z11.4 Encounter for screening for human immunodeficiency virus [HIV]; R31.9 Hematuria, unspecified
CPT/HCPCS: 36415; 81001; 86780; 86803; 87389; 87491; 87591

== ENCOUNTER 2025-07-08 22:17 | Emergency (ER) | payer MEDICAID, SELFPAY ==
[2025-07-08 22:16] VITALS: PULSE 45; O2SAT 98
[2025-07-08 22:17] VITALS: BMI 27.3
--- NOTE | 2025-07-08 22:25 | PC.NURSE ---
PD decided to PC patient. patient ambulated out of ED accompanied by PD.
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
--- OUTSIDE RECORDS SUMMARY | 2025-07-08 22:36 | XMS_ITS | Clinical Summary ---
Author Organization [facility] Address [address] [place] [phone] Phone Care Team Providers Care Egg Setter Name Role Phone Pcp, Unknown Primary Care Provider Unavailabl e Allergies No known active allergies Medications azithromycin (ZITHROMAX) 250 MG tablet Take 2 tablets by mouth on day 1, and 1 tablet by mouth on day 2 through 5 6 tablet 03/08/2022 Active albuterol 90 mcg/actuation inhaler Inhale 2 puffs into the lungs every 6 (six) hours as needed for wheezing. 18 g 03/08/2022 Active guaiFENesin-cod eine (ROBITUSSIN AC) 100-10 mg/5 mL liquid Take 2.5 mL (5 mg of codeine total) by mouth 3 (three) times a day as needed for cough. 118 mL 03/08/2022 Active Social History Tobacco Use Types Packs/Day Years Used Date Smoking Tobacco: Every Day Cigarettes Alcohol Use Standard Drinks/Week Comments Not Currently 0 (1 standard drink = 0.6 oz pur e alcohol) Education Answer Date Recorded Are you interested in more education? Not on andrews e 02/24/2023 Are you concerned about learning? Not on file 02/24/2023 No 02/24/2023 No 02/24/2023 Digital Access Answer Date Recorded No 03/27/2023 No 03/27/2023 Reliable internet access at home? Not on file 03/27/2023 Device with a working camera? Not on file Comments Unknown Sex and Gender Information Value Date Recorded Sex Assigned at Not on file Legal Sex Female 11:31 AM EDT Gender Identity Not on file Sexual Orientation Not on file Last Filed Vital Signs Vital Sign Reading Time Taken Comments Blood Pressure 93/56 03/08/2022 2:30 PM EDT Pulse 58 03/08/2022 2:21 PM EDT Temperature 36.5 C (97.7 F) 03/08/2022 11:35 AM EDT Respiratory Rate 17 03/08/2022 2:21 PM EDT Oxygen Saturation 100% 03/08/2022 2:30 PM EDT Inhaled Oxygen Concentration - - Weight - - Height - - Body Mass Index - - Plan of Treatment Not on file Medical Devices Not on file Insurance C3 [facility] [place] [place] [address] [place] [address] [place] [address] [place] [address] [place] [address] [place] [address] [employer] Care Teams Egg Setter Relationship Specialty Start Date End Date Pcp, Unknown PCP - General 03/08/22 Additional Source Comments The information contained in this document represents components of the legal health record. It is not the complete legal health record.[facility]
== END 2025-07-08 22:42 ==
LOC: HO.ED 22:33
PROVIDERS: Emergency Provider Emergency Medicine
DX: Z53.21 Procedure and treatment not carried out due to patient leaving prior to being seen by health care provider (principal)
CPT/HCPCS: 99281

== ENCOUNTER 2025-10-14 14:05 | Outpatient (REF) | payer MEDICAID, SELFPAY ==
--- OUTSIDE RECORDS SUMMARY | 2025-10-14 09:15 | XMS_ITS | Encounter Summary ---
Author Organization [employer] Address [address] [place] [address] Care Team Providers Care Environmental Associate Name Role Phone Lorena Chapa Primary Care Provider [phone] Reason for Visit * Reason Comments Annual Exam Asthma Encounter Details Date Type Department Care Team ([facility] Contact Info) Description 10/14/2025 9:15 AM EST Office Visit [facility] [address] [place] [address] Lorena Chapa FNP [address] [place] [phone] Healthcare maintenance (Primary Dx); Asthma, unspecified asthma severity, unspecified whether complicated, unspecified whether persistent; Dietary counseling; Exercise counseling Social History Tobacco Use Types Packs/Day Years Used Date Smoking Tobacco: Every Day Cigarettes 1 6.3 Started: 07/13/2019 Passive Smoke Exposure: Current Smokeless Tobacco: Never Tobacco Cessation:Ready to Q uit: Not Asked; Counseling Given: Not Answered Alcohol Use Standard Drinks/Week Comments Not Currently 3 (1 standard drink = 0.6 oz pur e alcohol) On weekends at bar Alcohol Answer Date Recorded How often do you have a drink containing alcohol ? 3 10/14/2025 How many drinks containing a lcohol do you have on a typical day when you are drinking? 3 10/14/2025 How often do you have six or more drinks on one occasion? 3 10/14/2025 Depression Answer Date Recorded Patient Health Questionnaire-9 Score 19 10/14/2025 Patient Health Questionnaire-9 Score 19 10/14/2025 Last PHQ-9: Questionnaire Data Not on file 1 12/15/2024 Housing Stability Answer Date Recorded What is your housing situation today? I do not have housing (Staying with others, in a hotel, in a jail, living outside on the street, on a beach, in a car, or in a park 10/14/[address] you li ve. Do you have problems with any of the following? None of the above 10/14/2025 Food Insecurity Answer Date Recorded Within the past 12 months, y ou worried that your food would run out before you got money to buy more: Often true 2024 Within the past 12 months,th e food you bought just didn't last and you didn't have enough money to get more: Sometimes True 10/14/2025 Transportation Answer Date Recorded In the past 12 months, has l ack of transportation kept you from medical appts, meetings, work or from getting things needed for daily living? Yes, it has kept me from medical appointments or getting medications. 10/14/2025 Utilities Answer Date Recorded In the past 12 months, has t he electric, gas, oil or water company threatened to shut off services in your home? No 10/14/2025 Depression Answer Date Recorded Patient Health Questionnaire-2 Score 5 10/14/2025 Internet Access Answer Date Recorded Internet Access Q1 No 10/14/2025 Internet Access Q2 I cannot afford it 10/14/2025 Comments No Sex and Gender Information Value Date Recorded Sex Assigned at Female 08/28/2022 10:22 AM EDT Legal Sex Female 10:22 AM EDT Gender Identity Female 08/28/2022 10:22 AM EDT Sexual Orientation Straight 08/28/2022 10 :22 AM EDT documented as of this encounter Last Filed Vital Signs Vital Sign Reading Time Taken Comments Blood Pressure 108/70 10/14/2025 10:01 AM EST Pulse 88 10/14/2025 10:01 AM EST Temperature 36.3 C (97.4 F) 10/14/2025 10:01 AM EST Respiratory Rate 18 10/14/2025 10:01 AM EST Oxygen Saturation - - Inhaled Oxygen Concentration - - Weight 67.1 kg (148 lb) 10/14/2025 10:01 AM EST Height 147.3 cm (4' 10 ) 10/14/2025 10:01 AM EST Body Mass Index 30.93 10/14/2025 10:01 AM EST documented in this encounter Functional Status * Over the past 2 weeks, how often have you been bothered by any of the following problems? Question Answer Date of Assessment Author Patient Health Questionnaire -2 Score 5 10/14/2025 10:08 AM Rosie Manuel MA * Little interest or pleasure in doing things Answer Date of Assessment Author More than half the days 10/14/2025 10:08 AM Rosie Manuel MA * Feeling down, depressed, or hopeless Answer Date of Assessment Author Nearly every day 10/14/2025 10:08 AM Rosie Manuel MA * Trouble falling or staying asleep, or sleeping too much Answer Date of Assessment Author Nearly every day 10/14/2025 10:08 AM Rosie Manuel MA * Feeling tired or having little energy Answer Date of Assessment Author Nearly every day 10/14/2025 10:08 AM oRsie Manuel MA * Poor appetite or overeating Answer Date of Assessment Author More than half the days 10/14/2025 10:08 AM Rosie Manuel MA * Feeling bad about yourself - or that you are a failure or have let yourself or your family down Answer Date of Assessment Author More than half the days 10/14/2025 10:08 AM Rosie Manuel MA * Trouble concentrating on things, such as reading the newspaper or watching television Answer Date of Assessment Author More than half the days 10/14/2025 10:08 AM Rosie Manuel MA * Moving or speaking so slowly that other people could have noticed? Or the opposite - being so fidgety or restless that you have been moving around a lot more than usual. Answer Date of Assessment Author More than half the days 10/14/2025 10:08 AM Rosie Manuel MA * Thoughts that you would be better off or hurting yourself in some way Answer Date of Assessment Author Not at all 10/14/2025 10:08 AM Gabrielle Manuel MA * Patient Health Questionnaire-9 Score Answer Date of Assessment Author 19 10/14/2025 10:08 AM Gabrielle Manuel MA * Over the last 2 weeks, how often have you been bothered by any of the following problems? Question Answer Date of Assessment Author Feeling nervous, anxious, or on edge 3 10/14/2025 10:08 AM Rosie Manuel MA Not being able to stop or co ntrol worrying 3 10/14/2025 10:08 AM Rosie Manuel MA Worrying too much about diff erent things 2 10/14/2025 10:08 AM Rosie Manuel MA Trouble relaxing 2 10/14/2025 10:08 AM Rosie Manuel MA Being so restless that it is hard to sit still 2 10/14/2025 10:08 AM Rosie Manuel MA Becoming easily annoyed or irritable 2 10/14/2025 10:08 AM Rosie Manuel MA Feeling afraid as if somethi ng awful might happen 2 10/14/2025 10:08 AM Rosie Manuel MA KEN-7 Total Score 16 10/14/2025 10:08 AM Rosie Manuel MA * How difficult have these problems made it for you to do your work, take care of things at home, or get along with other people? Answer Date of Assessment Author Extremely difficult 10/14/2025 10:08 AM Rosie Gill MA documented as of this encounter Plan of Treatment Upcoming Encounters Date Type Department Care Team (Late st Contact Info) Description 11/25/2025 9:45 AM EST Office Visit [facility] [address] [place] [address] Lorena Chapa FNP [address] [place] [address] Scheduled Orders Name Type Priority Associated Diagnoses Orde r Schedule HIV-1/2 Antigen and Antibodies, Fourth Generation, with Reflexes Lab Routine Healthcare maintenance Expected: 10/14/2025 (Approximate), Expires: 10/14/2026 RPR (Monitor) with Reflex to Titer Lab Routine Healthcare maintenance Expected: 10/14/2025, Expires: 10/14/2026 Hepatitis C Antibody with Reflex to HCV, RNA, Quantitative, Real-Time PCR Lab Routine Healthcare maintenance Expected: 10/14/2025, Expires: 10/14/2026 Chlamydia/Trichomonas/Nei sseria gonorrhoeae, PCR, Urine Lab Routine Healthcare maintenance Expected: 10/14/2025 (Approximate), Expires: 10/14/2026 Hepatitis B Core Antibody, Total Lab Routine Healthcare maintenance Expected: 10/14/2025 (Approximate), Expires: 10/14/2026 Hepatitis B Surface Antibody, Qualitative Lab Routine Healthcare maintenance Expected: 10/14/2025 (Approximate), Expires: 10/14/2026 Hepatitis B surface antigen, EIA Lab Routine Healthcare maintenance Expected: 10/14/2025 (Approximate), Expires: 10/14/2026 documented as of this encounter Procedures Procedure Name Priority Date/Time Associated Diagnosis Comments TSH W/REFLEX TO FT4 Routine 10/14/2025 2 :11 PM EST Healthcare maintenance CBC WITH AUTO DIFFERENTIAL Routine 10/14/2025 2:11 PM EST Healthcare maintenance HEMOGLOBIN A1C Routine 10/14/2025 2:11 PM EST Healthcare maintenance FERRITIN Routine 10/14/2025 2:11 PM EST Healthcare maintenance LIPID PANEL, STANDARD Routine 10/14/2025 2:11 PM EST Healthcare maintenance COMPREHENSIVE METABOLIC PANEL Routine 10/14/2025 2:11 PM EST Healthcare maintenance documented in this encounter Results * Ferritin (10/14/2025 2:11 PM EST) Ferritin 88 10 - 122 ng/mL [facility] Blood Venous blood specimen / Unknown 10/14/2025 2:11 PM EST 10/14/2025 4:18 PM EST us Lorena Chapa COUNSELOR MANAGER LAB BLOOD ORDERABLES Final Res ult [facility] [address] [place] [phone] * (ABNORMAL) CBC auto differential (10/14/2025 2:11 PM EST) White Blood Count 7.2 4.8 - 10.8 X10*3/uL [facility] Red Blood Count 4.43 4.20 - 5.50 X10*6/uL [facility] Hemoglobin 12.5 12.0 - 16.0 g/dl [facility] Hematocrit 39.8 37.0 - 47.0 % [facility] Mean Corpuscular Volume 89.8 80.0 - 98.0 fL [facility] Mean Corpuscular Hemoglobin 28.2 27.0 - 33.0 pg [facility] Mean Corpuscular HGB Conc 31.4 31.0 - 35.0 g/dl [facility] Red Cell Distribution Width 12.7 11.0 - 16.0 % [facility] Platelet Count 271 160 - 400 X10*3/uL [facility] Mean Platelet Volume 9.8 9.4 - 12.3 fL [facility] Neutrophils Percent Auto 56.6 45 - 73 % [facility] Imm Gran Pct Auto 0.1 0.0 - 0.4 % [facility] Lymphocytes Percent Auto 32.4 20 - 40 % [facility] Monocytes Percent Auto 5.7 2 - 11 % [facility] Eosinophils Percent Auto 4.8(H) 0 - 4 % [facility] Basophils Percent Auto 0.4 0 - 2 % [facility] NRBC Pct Auto 0.0 0.0 - 0.2 /100WBC [facility] Neutrophils Absolute Auto 4.1 2.0 - 8.3 x10*3/uL [facility] Imm Gran Abs Auto 0.01 0.00 - 0.03 X10*3/uL [facility] Lymphocytes Absolute Auto 2.3 1.2 - 4.9 X10*3/uL [facility] Monocytes Absolute Auto 0.4 0.1 - 1.2 X10*3/uL [facility] Eosinophils Absolute Auto 0.4 0.0 - 0.4 X10*3/uL [facility] Basophils Absolute Auto 0.0 0.0 - 0.2 X10*3/uL [facility] NRBC Abs Auto 0.000 0.0 - 0.012 X10*3/uL [facility] Blood Venous blood specimen / Unknown 10/14/2025 2:11 PM EST 10/14/2025 4:18 PM EST us Lorena Chandrakantpietro COUNSELOR MANAGER LAB BLOOD ORDERABLES Final Res ult [facility] [address] [place], [place] [phone] * Comprehensive Metabolic Panel (10/14/2025 2:11 PM EST) Sodium 140 135 - 145 mmol/L [facility] Potassium 4.5 3.3 - 5.1 mmol/L [facility] Chloride 106 96 - 108 mmol/L [facility] Carbon Dioxide 27 22 - 29 mmol/L [facility] Anion Gap 12 12 - 20 [facility] Urea Nitrogen (BUN) 9 9 - 16 mg/dL [facility] Creatinine, Serum 0.65 0.5 - 1.4 mg/dL [facility] Estimated Glomerular Filt Rate >60 [facility] Comment:Chronic Kidney Disea se: Estimated GFR < 60 mL/min/1.45g7Fwxoag Kidney Disease: Estimated GFR < 15 mL/min/1.73m2 Glucose 102 60 - 115 mg/dL [facility] Calcium 9.1 8.4 - 10.2 mg/dL [facility] Bilirubin, Total 0.2 0.0 - 1.0 mg/dL [facility] Aspartate Amino Transferase 24 5 - 31 U/L [facility] Alanine Aminotransferase 20 0 - 31 U/L [facility] Total Protein 7.1 6.5 - 8.0 g/dL [facility] Albumin Level 4.6 3.5 - 5.0 g/dL [facility] Alkaline Phosphatase 81 39 - 117 U/L [facility] Blood Venous blood specimen / Unknown 10/14/2025 2:11 PM EST 10/14/2025 4:18 PM EST us Lorena Chapa COUNSELOR MANAGER LAB BLOOD ORDERABLES Final Res ult Performing Organization Address [facility]/ZIP Co de Phone Number [facility] [address] [place] [phone] * TSH with Reflex to Free T4 (10/14/2025 2:11 PM EST) TSH reflex Free T4 0.73 0.32 - 4.0 uIU/mL [facility] Blood 10/14/2025 2:11 PM EST 10/14/2025 4:18 PM EST Lorena Chapa [facility] LAB BLOOD ORDERABLES Final Res ult Performing Organization Address [facility] Co de Phone Number [facility] [address] [place] [phone] * Hemoglobin A1c (10/14/2025 2:11 PM EST) Hemoglobin A1c 5.4 <6.0 % [facility] Comment:Hemoglobin A1C Refer ence Range Adults: 4.8 - 6.0 % Non diabetic: < 6.0 % Goal: < 7.0 %Additional Action Suggested: > 8.0 %Note: Hemoglobin A1c results are invalid for patients with abnormal amounts of HbF. Blood transfusions may impact the HbA1c concentration in the patient sample. Estimated Average Glucose 108 mg/dL [facility] Comment:eAG = Estimated ave rage glucose which is %A1C expressed asaverage glucose, using the formula of the [id number]-[id number] Glucose study (ADAG), Diabetes Care, Vol.31,#8,May. 2007 Blood Venous blood specimen / Unknown 10/14/2025 2:11 PM EST 10/14/2025 4:18 PM EST Lorena CUEVAS LAB BLOOD ORDERABLES Final Res ult Performing Organization Address [facility] de Phone Number [facility] [address] [place] [address] [phone] * (ABNORMAL) Lipid Panel, Standard (10/14/2025 2:11 PM EST) Triglycerides 120 <150 mg/dL [facility] Comment:Desirable Triglyceri de: less than 150 mg/dLBorderline High Triglyceride 150-199 mg/dLHigh Triglyceride: 200-499 mg/dLVery High Triglyceride: greater than or equal to 5OO mg/dL Cholesterol 175 <200 mg/dL [facility] Comment:Desirable Cholestero l: less than 200 mg/dLBorderline High Cholesterol: 200-239 mg/dLHigh Cholesterol: greater than 239 mg/dL LDL Cholesterol Calculated 104(H) <100 mg/dL [facility] Comment:Desirable LDL: less than 100 mg/dLNear Optimal/Above Optimal LDL: 110- 129 mg/dLBorderline High LDL: 130-159 mg/dLHigh LDL: 160-189 mg/dLVery High LDL: greater than or equal to 190 mg/dL HDL Cholesterol 47 >40 mg/dL [facility] Comment:Desirable HDL: great er than 40 mg/dL Note: This HDL assay may give artificially low results in patients with liver disease. Blood Venous blood specimen / Unknown 10/14/2025 2:11 PM EST 10/14/2025 4:18 PM EST us Lorena CUEVAS LAB BLOOD ORDERABLES Final Res ult Performing Organization Address [facility] Co de Phone Number [facility] [address] [place] [phone] [phone] documented in this encounter Visit Diagnoses Diagnosis Healthcare maintenance- Primary Asthma, unspecified asthma severity, unspecified whether complicated, unspecified whether persistent Dietary counseling Dietary surveillance and counseling Exercise counseling documented in this encounter Additional Health Concerns Assessment Noted Time PHQ-9 Depression Total Score: 19 025 10:08 AM EST documented as of this encounter Care Teams Environmental Associate Relationship Specialty Start Date End Date Lorena Chapa FNP [address] [place] [address] PCP - General Family Medicine 06/24/22 documented as of this encounter
[2025-10-14 16:20] LABS: MANUAL DIFF FLAG NO
[2025-10-14 16:27] LABS: Hematocrit 39.8 % (37.0-47.0); Hemoglobin 12.5 g/dl (12.0-16.0); Imm Gran Abs Auto 0.01 X10*3/uL (0.00-0.03); Imm Gran Pct Auto 0.1 % (0.0-0.4); Lymphocytes Absolute Auto 2.3 X10*3/uL (1.2-4.9); Mean Corpuscular HGB Conc 31.4 g/dl (31.0-35.0); Mean Corpuscular Hemoglobin 28.2 pg (27.0-33.0); Mean Corpuscular Volume 89.8 fL (80.0-98.0); NRBC Abs Auto 0.000 X10*3/uL (0.0-0.012); NRBC Pct Auto 0.0 /100WBC (0.0-0.2); Platelet Count 271 X10*3/uL (160-400); Red Blood Count 4.43 X10*6/uL (4.20-5.50); White Blood Count 7.2 X10*3/uL (4.8-10.8)
[2025-10-14 16:57] LABS: Alanine Aminotransferase 20 U/L (0-31); Albumin Level 4.6 g/dL (3.5-5.0); Alkaline Phosphatase 81 U/L (39-117); Anion Gap 12 (12-20); Aspartate Amino Transferase 24 U/L (5-31); Blood Urea Nitrogen 9 mg/dL (9-16); Calcium 9.1 mg/dL (8.4-10.2); Carbon Dioxide 27 mmol/L (22-29); Chloride 106 mmol/L (96-108); Cholesterol 175 mg/dL (<200); Estimated Glomerular Filt Rate > 60; HDL Cholesterol 47 mg/dL (>40); Potassium 4.5 mmol/L (3.3-5.1); Sodium 140 mmol/L (135-145); Total Protein 7.1 g/dL (6.5-8.0); Triglycerides 120 mg/dL (<150)
[2025-10-14 17:01] LABS: Ferritin 88 ng/mL (10-122)
--- OUTSIDE RECORDS SUMMARY | 2025-10-14 18:52 | XMS_ITS | Encounter Summary ---
Author Organization [employer] Address [address] [place] [address] Care Team Providers Care Psychiatric Registered Nurse Name Role Phone ChandrakantpietroLorena Primary Care Provider [phone] Encounter Details Date Type Department Care Team ([facility] st Contact Info) Description 10/13/2025 Telephone [facility] [address] [place] [address] Francisca Fan MA Social History Tobacco Use Types Packs/Day Years [...] with others, in a hotel, in a mcc, living outside on the street, on a [...] the past 12 months, has t he [employer], gas, oil or water company threatened to shut off services in your home? No 10/14/2025 Depression Answer Date Recorded Patient Health Questionnaire-2 Score 5 10/14/2025 Internet Access Answer Date Recorded Internet Access Q1 No 10/14/2025 Internet Access Q2 I cannot afford it 10/14/2025 Comments Unknown Sex and Gender Information Value Date Recorded Sex Assigned at Female 08/28/2022 10:22 AM EDT Legal Sex Female 10:22 AM EDT Gender Identity Female 08/28/2022 10:22 AM EDT Sexual Orientation Straight 08/28/2022 10 :22 AM EDT documented as of this encounter Miscellaneous Notes * Telephone Encounter - Francisca Fan MA - 10/13/2025 11:33 AM EST Chart Prep Labs: done Images: done Referrals: not applicable Vaccines due: Covid, Flu, PCV20, Hep B, and HPV Screenings: not applicable Overdue care gaps: SBIRT, SDOH, and PHQ-9 documented in this encounter Plan of Treatment Upcoming Encounters Date Type Department Care Team (Late st Contact Info) Description 11/25/2025 9:45 AM EST Office Visit [facility] [address] [place] [address] Lorena Chapa FNP [address] [place] [address] documented as of this encounter Visit Diagnoses Not on filedocumented in this encounter Additional Health Concerns Assessment Noted Time PHQ-9 Depression Total Score: 18 024 2:01 PM EST documented as of this encounter Care Teams Psychiatric Registered Nurse Relationship Specialty Start Date End Date Lorena Chapa FNP [address] [place] [address] PCP - General Family Medicine 06/24/22 documented as of this encounter
--- OUTSIDE RECORDS SUMMARY | 2025-10-14 18:52 | XMS_ITS | Clinical Summary ---
Author Organization [facility] Address [address] [place] [phone] Phone Care Team Providers Care Regional Loss Prevention Manager Name Role Phone Pcp, Unknown Primary Care [...] Devices Not on file Insurance [employer] [facility] [employer] [facility] [place] [address] [address] [place] [address] [place] [address] [place] [address] [place] [address] [place] [address] [employer] Care Teams Regional Loss Prevention Manager Relationship Specialty Start Date End Date Pcp, Unknown PCP - General 03/08/22 Additional Source Comments The information contained in this document represents components of the legal health record. It is not the complete legal health record.[facility]
--- OUTSIDE RECORDS SUMMARY | 2025-10-14 18:52 | XMS_ITS | Encounter Summary ---
Author Organization [employer] Address [address] [place] [address] Care Team Providers Care Furnace Installer Name Role Phone ChandrakantpietroLorena Primary Care Provider [phone] Encounter Details Date Type Department Care Team ([facility] st Contact Info) Description 10/13/2025 Telephone [facility] [address] [place] [address] Francisca Fan MA Social History Tobacco Use [...] with others, in a hotel, in a prison, living outside on the street, on a [...] the past 12 months, has t he [employer], gas, oil or water company threatened to [...] Encounter - Francisca Fan MA - 10/13/2025 11:34 AM EST Chart Prep Labs: done Images: done Referrals: not applicable Vaccines due: Covid, Flu, PCV20, Hep B, and HPV Screenings: not applicable Overdue care gaps: SBIRT, SDOH, and PHQ-9 documented in this encounter Plan of Treatment Upcoming Encounters Date Type Department Care Team (Late st Contact Info) Description 11/25/2025 9:45 AM EST Office Visit [facility] [address] [place] [address] Lorena Chapa FNP [address] [place] [address] documented as of this encounter Visit Diagnoses Not on filedocumented in this encounter Additional Health Concerns Assessment Noted Time PHQ-9 Depression Total Score: 18 024 2:01 PM EST documented as of this encounter Care Teams Furnace Installer Relationship Specialty Start Date End Date Lorena Chapa FNP [address] [place] [address] PCP - General Family Medicine 06/24/22 documented as of this encounter
--- OUTSIDE RECORDS SUMMARY | 2025-10-14 18:52 | XMS_ITS | Encounter Summary ---
Author Organization [employer] Address [address] [place] [address] Care Team Providers Care Spray Gun Repairer Helper Name Role Phone Lorena Chapa Primary Care Provider Encounter Details Date Type Department Care Team ([facility] st Contact Info) Description 10/14/[address] [facility] [address] [place] [address] Lorena Chapa FNP [address] [place] [address] Social History Tobacco Use Types Packs/Day Years [...] with others, in a hotel, in a chcf, living outside on the street, on a [...] AM EDT documented as of this encounter Functional Status * Over the [...] 10/14/2025 10:08 AM Rosie Manuel MA * Poor appetite or overeating [...] Gill MA documented as of this encounter Miscellaneous Notes * Telephone Encounter - Rosie Castillo MA - 10/14/2025 2:18 PM EST POSITIVE SDOH, please provider all the support and connections to get assets to housing and others necessities. Thanks. documented in this encounter Plan of Treatment Upcoming Encounters Date Type Department Care Team (Late st Contact Info) Description 11/25/2025 9:45 AM EST Office Visit [facility] [address] [place] [address] Lorena Chapa FNP [address] [place] [address] documented as of this encounter Visit Diagnoses Not on filedocumented in this encounter Additional Health Concerns Assessment Noted Time PHQ-9 Depression Total Score: 19 025 10:08 AM EST documented as of this encounter Care Teams Spray Gun Repairer Helper Relationship Specialty Start Date End Date Lorena Chapa FNP [address] [place] [address] PCP - General Family Medicine 06/24/22 documented as of this encounter
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
--- OUTSIDE RECORDS SUMMARY | 2025-10-14 18:52 | XMS_ITS | Encounter Summary ---
Author Organization [employer] Address [address] [place] [address] Care Team Providers Care Charger Operator Name Role Phone Lorena Chapa FAITH Primary Care Provider [phone] Encounter Details Date Type Department Care Team (Latest Contact Info) Description 10/13/2025 Travel Social History Tobacco Use Types Packs/Day Years [...] with others, in a hotel, in a fdc, living outside on the street, on a [...] AM EDT documented as of this encounter Plan of Treatment Upcoming Encounters Date Type Department Care Team (Late st Contact Info) Description 11/25/2025 9:45 AM EST Office Visit [facility] [address] [place] [address] Lorena Chapa FNP [address] [place] [address] documented as of this encounter Visit Diagnoses Not on filedocumented in this encounter Additional Health Concerns Assessment Noted Time PHQ-9 Depression Total Score: 18 024 2:01 PM EST documented as of this encounter Care Teams Charger Operator Relationship Specialty Start Date End Date Lorena Chapa FNP [address] [place] [address] PCP - General Family Medicine 06/24/22 documented as of this encounter
--- OUTSIDE RECORDS SUMMARY | 2025-10-14 18:52 | XMS_ITS | Encounter Summary ---
Author Organization [employer] Address [address] [place] [address] Care Team Providers Care Political Organizer Name Role Phone Lorena Chapa FAITH Primary Care Provider [phone] Encounter Details Date Type Department Care Team (Latest Contact Info) Description 10/14/2025 Travel Social History Tobacco Use Types Packs/Day [...] Assessment Author Extremely difficult 10/14/2025 10:08 AM EST Rosie Coleman [place] documented as of this encounter Plan of Treatment Upcoming Encounters Date Type Department Care Team (Late st Contact Info) Description 11/25/2025 9:45 AM EST Office Visit [facility] [address] [place] [address] Lorena Chapa FNP [address] [place] [address] documented as of this encounter Visit Diagnoses Not on filedocumented in this encounter Additional Health Concerns Assessment Noted Time PHQ-9 Depression Total Score: 19 025 10:08 AM EST documented as of this encounter Care Teams Political Organizer Relationship Specialty Start Date End Date Lorena Chapa FNP [address] [place] [address] PCP - General Family Medicine 06/24/22 documented as of this encounter
--- OUTSIDE RECORDS SUMMARY | 2025-10-14 18:52 | XMS_ITS | Encounter Summary ---
Author Organization [employer] Address [address] [place] [address] Care Team Providers Care Charge Attendant Name Role Phone Lorena Chapa Primary Care Provider [phone] Reason for Visit * Reason Onset Date Comments Appointment Request 03/05/2025 Encounter Details Date Type Department Care Team ([facility] Contact Info) Description 03/05/2025 Telephone [facility] [address] [place] [address] Lorena Chapa FNP [address] [place] [address] Appointment Request Social History Tobacco Use Types [...] with others, in a hotel, in a skilled nursing, living outside on the street, on a [...] the past 12 months, has t he [employer], gas, oil or water company threatened to [...] Upcoming Encounters Date Type Department Care Team ([facility] st Contact Info) Description 11/25/2025 9:45 AM EST Office Visit [facility] [address] [place] [address] Lorena Chapa FNP [address] [place] [address] documented as of this encounter Visit Diagnoses Not on filedocumented in this encounter Additional Health Concerns Assessment Noted Time PHQ-9 Depression Total Score: 18 024 2:01 PM EST documented as of this encounter Care Teams Charge Attendant Relationship Specialty Start Date End Date Lorena Chapa FNP [address] [place] [address] PCP - General Family Medicine 06/24/22 documented as of this encounter
--- OUTSIDE RECORDS SUMMARY | 2025-10-14 18:52 | XMS_ITS | Encounter Summary ---
Author Organization [employer] Address [address] [place] [address] Care Team Providers Care Reeling Machine Operator Name Role Phone Lorena Chapa Primary Care Provider [phone] Reason for Visit * Reason Comments Care Coordination CHW outreach for SDO H housing search-referral completed Encounter Details Date Type Department Care Team (Latest Contact Info) Description 10/14/2025 Patient Outreach [facility] [address] [place] [address] Lorena Chapa FNP [address] [place] [id number] Care Coordination (CHW outreach for SDOH housing search-referral completed ) Social History Tobacco Use Types Packs/Day Years [...] with others, in a hotel, in a senior care, living outside on the street, on a [...] than half the days 10/14/2025 10:08 AM Rosei Manuel MA * Feeling bad about yourself [...] Gill MA documented as of this encounter Progress Notes * Nahid Gonzalez - 10/14/2025 2:57 PM EST CHW Nahid Gonzalez, placed outbound call to patient for assistance with SDOH as a referral was received by the provider. Patient's name and were confirmed. Patient screened positive for the following SDOH housing insecurities. Patient states is staying with her friend but is searching for her own apartment. CHW referral patient to the list of application mail out to her address on file. Patient verbalizes understanding, and able to agree with plan to follow up herself. Patient educated on extended clinic hours on Mondays through Wednesdays, and Walk-In Urgent Care Located in [facility]. Patient provided with after-hours line for [facility], , which offer night time triage service and option to transfer to regional recruiter provider if needed. documented in this encounter Plan of Treatment Upcoming Encounters Date Type Department Care Team (Late st Contact Info) Description 11/25/2025 9:45 AM EST Office Visit [facility] [address] [place] [address] Lorena Chapa FNP [address] [place] [address] documented as of this encounter Visit Diagnoses Not on filedocumented in this encounter Additional Health Concerns Assessment Noted Time PHQ-9 Depression Total Score: 19 025 10:08 AM EST documented as of this encounter Care Teams Reeling Machine Operator Relationship Specialty Start Date End Date Lorena Chapa FNP [address] [place] [address] PCP - General Family Medicine 06/24/22 documented as of this encounter
[2025-10-15 01:53] LABS: CT PCR Urine NOT DETECTED (Not Detect.); NG PCR Urine NOT DETECTED (Not Detect.)
[2025-10-15 04:26] LABS: HBS Num1 4.78 mIU/mL (0-7.99); HBc Num1 0.08 S/CO (0.00-0.79); HIV Num 1 0.07 S/CO (0.00-0.99); ~HepC Num1 0.08 S/CO (0.00-0.79); ~Hepatitis B Surface Antibody NONREACTIVE (Nonreactive); ~Hepatitis C Antibody Nonreactive (Nonreactive)
[2025-10-15 13:38] LABS: HBsAGNum1 0.27 S/CO (0.00-0.99); Hepatitis B Surface Antigen Negative (Negative)
== END 2025-10-14 14:06 | disposition home or self-care (01) ==
LOC: HO.HHCL 14:05
PROVIDERS: PCP Registered Nurse; Visit Provider Registered Nurse
DX: Z00.00 Encounter for general adult medical examination without abnormal findings (principal); Z11.59 Encounter for screening for other viral diseases; Z11.4 Encounter for screening for human immunodeficiency virus [HIV]; Z20.2 Contact with and (suspected) exposure to infections with a predominantly sexual mode of transmission
CPT/HCPCS: 80053; 80061; 82728; 83036; 84443; 85025; 86592; 86704; 86706; 86803; 87340; 87389; 87491; 87591